=== PATIENT | male | born 1930 | race Caucasian/White ===

== ENCOUNTER 2016-09-10 11:28 | Emergency (ER) | payer MEDICARE, OTHER ==
[2016-09-10 11:37] VITALS: PULSE 60; RESP 18
--- NOTE | 2016-09-10 12:43 | ED ---
Fall HPI - General Chief Complaint: Fall Stated Complaint: Fell/head injury Time Seen by Provider: 09/10/16 12:20 Source: patient, family, RN notes reviewed Mode of arrival: wheelchair - History of Present Illness Initial Comments: This is a 85-year-old male who slipped and fell this morning landing on asphalt. He states he landed flat on his back in his head. Skin no loss of consciousness denies a loss of function is upper or lower extremities denies any neck pain. He is on blood thinner however. No other complaints at this time MD Complaint: fall - Related Data Home Medications Medication Instructions Recorded Confirmed Amitriptyline HCl 25 mg PO HS 03/16/15 09/10/16 Apixaban [Eliquis] 2.5 mg PO BID 03/16/15 09/10/16 Atorvastatin [Lipitor] 20 mg PO DAILY 03/16/15 09/10/16 Enalapril/Hydrochlorothiazide 1 tab PO DAILY 03/16/15 09/10/16 [Vaseretic 10-25 mg] HYDROcodone/APAP 7.5-325MG [[place] 1 tab PO Q6HR PRN 03/16/15 09/10/16 7.5-325] Isosorbide Mononitrate ER [Imdur] 30 mg PO DAILY 03/16/15 09/10/16 Nitroglycerin Sl Tabs [Nitrostat] 0.4 mg SUBLINGUAL Q5M PRN 03/16/15 09/10/16 Omeprazole [PriLOSEC] 20 mg PO AC-BID 03/16/15 09/10/16 amLODIPine BESYLATE [Norvasc] 10 mg PO DAILY 03/16/15 09/10/16 Ferrous Sulfate [Feosol] 325 mg PO HS 09/10/16 09/10/16 Januvia (Unknown Dose) 1 tab PO DAILY 09/10/16 09/10/16 Metoprolol Tartrate [Lopressor] 25 mg PO TID 09/10/16 09/10/16 Previous Rx's Medication Instructions Recorded Allopurinol [Zyloprim] 100 mg PO DAILY #30 tab 03/23/15 Allergies Allergy/AdvReac Type Severity Reaction Status Date / Time No Known Allergies Allergy Verified 09/10/16 11:37 Review of Systems ROS Statement: Those systems with pertinent positive or pertinent negative responses have been documented in the HPI. ROS Other: All systems not noted in ROS Statement are negative. Past Medical History Past Medical History: Coronary Artery Disease (CAD), Diabetes Mellitus, Hypertension History of Any Multi-Drug Resistant Organisms: None Reported Past Surgical History: Heart Catheterization With Stent, Pacemaker, Tonsillectomy Additional Past Surgical History / Comment(s): left knee replacement, plate in back, right carotid endarterectomy Past Anesthesia/Blood Transfusion Reactions: No Reported Reaction Date of Last Stent Placement:: unknown Past Psychological History: No Psychological Hx Reported Smoking Status: Former smoker Past Alcohol Use History: Occasional Past Drug Use History: None Reported - Past Family History Father Family Medical History: Coronary Artery Disease (CAD) Mother Family Medical History: Myocardial Infarction (DC) General Exam - General Exam Comments Initial Comments: This is a well-developed well-nourished awake alert oriented history male he has a [place] Coma Scale of 15 Limitations: no limitations General appearance: alert, in no apparent distress Head exam: Present: normocephalic, normal inspection, other (I'll discomfort to palpation over the next several scalp with no evidence of any lacerations or abrasions no step-off or crepitation.) Eye exam: Present: normal appearance, PERRL, EOMI. Absent: scleral icterus, conjunctival injection, periorbital swelling ENT exam: Present: normal exam, mucous membranes moist Neck exam: Present: normal inspection. Absent: tenderness, meningismus, lymphadenopathy Respiratory exam: Present: normal lung sounds bilaterally, chest wall tenderness (Tenderness palpation over left lateral chest wall and costochondral margins. No definite step-off or crepitation no abrasion seen no bruising) Cardiovascular Exam: Present: regular rate, normal rhythm, normal heart sounds. Absent: systolic murmur, diastolic murmur, rubs, gallop, clicks GI/Abdominal exam: Present: soft, normal bowel sounds. Absent: distended, tenderness, guarding, rebound, rigid Extremities exam: Present: normal inspection, full ROM, normal capillary refill. Absent: tenderness, pedal edema, joint swelling, calf tenderness Back exam: Present: normal inspection Neurological exam: Present: alert, oriented X3, CN II-XII intact Psychiatric exam: Present: normal affect, normal mood Skin exam: Present: warm, dry, intact, normal color. Absent: rash Course Vital Signs 09/10/16 11:33 Temperature 98.0 F Pulse Rate 60 Respiratory 18 Rate Blood Pressure 145/68 O2 Sat by Pulse 99 Oximetry Medical Decision Making - Medical Decision Making I did discuss the findings with the patient family patient be discharged he is a follow-up as needed with his doctor return when necessary - Radiology Data Radiology results: report reviewed (I did review the imaging and reports and CT the head neck show no acute findings or is degenerative changes noted. There is a fracture of the left fifth rib. No pneumothorax no other findings.), image reviewed Disposition Clinical Impression: Fall, Rib fracture, Scalp contusion Disposition: HOME SELF-CARE Condition: Good Instructions: Fall Prevention for Older Adults (ED), Rib Fracture (ED), Scalp Contusion in Adults (ED)
--- NOTE | 2016-09-10 13:24 | CT ---
EXAMINATION TYPE: CT brain cspine wo con DATE OF EXAM: 09/10/2016 1:11 PM COMPARISON: 03/16/2015 HISTORY: Fall/head injury CT DLP: Brain (1081.60) and C-spine (442.80) mGycm, Automated exposure control for dose reduction was used. CONTRAST: Patient injected with mL of . CT of the brain is performed utilizing 3 mm thick sections through the posterior fossa and 3 mm thick sections through the remaining calvarium. Study is performed within 24 hours of arrival to the hospital. No abnormal hyperdensity is present to suggest an acute intracranial hemorrhage. No mass lesion is evident. No acute infarcts are evident. There is mild periventricular white matter hypodensity, likely on the basis of mild chronic white matter ischemic changes. Present on the 2014 comparison. Ventricles and sulci are prominent for the patient age. Paranasal sinuses and mastoid air cells within the [id number] are clear. IMPRESSIONS: 1. Atrophy with chronic appearing white matter ischemic type changes CT cervical spine. COMPARISON: None CT of the cervical spine is performed in the axial plane at 2 mm thick sections. Reconstructed image s in the coronal, and sagittal plane are reviewed on the computer. No acute fractures are evident. There is straightening of the vertebral body alignment. A minimal grade 1 spondylolisthesis of C3 ant eriorly on C4 may be present. There is loss of disc height CT 5 6 C6-7. Longitudinal ligament calcification may be present posterio rly at the disc space of C5-6. Posterior endplate spurring is noted at C4. Anterior vertebral body sp urring is present C3, C5, C6 and C7. Vertebral body heights are preserved. Left foraminal narrowing at C2-3 is present due to uncovertebral joint hypertrophy. Severe right fora silvestre stenosis is present C3-4 due to uncovertebral joint hypertrophy and facet hypertrophy. Severe r ight and moderate to severe left foraminal stenosis is present secondary to uncovertebral joint hyper trophy and facet hypertrophy. Severe foraminal stenosis is present bilaterally C5-C6. Endplate spurri ng and longitudinal ligament calcification are contributing to AP spinal canal stenosis with an AP di ameter estimated 0.6 cm. Severe bilateral foraminal stenosis due to uncovertebral joint hypertrophy i s present C6-7 IMPRESSIONS: 1. No acute osseous abnormality. 2. Severe foraminal stenosis due to uncovertebral joint hypertrophy and some facet hypertrophy. 3. AP spinal canal stenosis due to endplate spurring ligament calcification at C5-6.
--- NOTE | 2016-09-10 13:26 | XR ---
EXAMINATION TYPE: XR ribs LT w pa chest xray DATE OF EXAM: 09/10/2016 1:18 PM COMPARISON: 03/23/2015 HISTORY: Pain TECHNIQUE: Single view of the chest 4 views of the ribs are submitted. FINDINGS: Chronic senescent parenchymal changes identified. No Evidence for pneumothorax. No evidenc e for focal contusion. Mediastinal structures are midline. Evaluation of the ribs demonstrate sever al remote appearing left-sided rib fractures however there may be an acute fracture involving left ri b #5 posteriorly laterally. IMPRESSION: 1. Chronic senescent parenchymal change. 2. Suspect acute left-sided rib fracture of rib 5. Multiple additional remote fractures.
[2016-09-10 14:26] VITALS: BP 150/70; TEMP 96.8
== END 2016-09-10 14:26 | disposition home or self-care (01) ==
LOC: EC 11:28
DX: S22.32XA Fracture of one rib, left side, initial encounter for closed fracture (principal); S00.03XA Contusion of scalp, initial encounter; W01.0XXA Fall on same level from slipping, tripping and stumbling without subsequent striking against object, initial encounter; Z79.899 Other long term (current) drug therapy; I10 Essential (primary) hypertension; E11.9 Type 2 diabetes mellitus without complications; I25.10 Atherosclerotic heart disease of native coronary artery without angina pectoris; Z95.0 Presence of cardiac pacemaker; Z95.5 Presence of coronary angioplasty implant and graft; Z87.891 Personal history of nicotine dependence
CPT/HCPCS: 70450; 72125; 99284

== ENCOUNTER → 2016-10-02 | Outpatient (CLI) | payer OTHER, MEDICARE ==
--- NOTE | 2016-10-02 15:15 | XR ---
EXAMINATION TYPE: XR chest 2V DATE OF EXAM: 10/02/2016 2:37 PM COMPARISON: 09/10/2016 HISTORY: 85-year-old male left-sided lower rib pain after fall one week ago, rib fracture TECHNIQUE: Frontal and lateral views FINDINGS: Heart is normal size. At this cardiac calcifications throughout the aorta with mild elongation. Mild interstitial prominence unchanged. There appears to be a slight cortical step-off involving the left posterolateral seventh rib not seen previously. The previously described left posterior fifth rib fra cture is largely obscured by the patient's pacemaker generator. No consolidation, pneumothorax, or pl eural effusion. IMPRESSION: Now apparent is a minimally displaced fracture of the left posterolateral seventh rib. The previously seen left posterior fifth rib fracture is likely obscured by the patient's pacemaker generator. No a cute cardiopulmonary process.
== END | disposition home or self-care (01) ==
LOC: RADXRMAIN 14:14
PROVIDERS: ATTEND Internal Medicine
DX: S22.32XA Fracture of one rib, left side, initial encounter for closed fracture (principal)
CPT/HCPCS: 71020

== ENCOUNTER 2017-07-06 21:06 | Inpatient (IN) | payer MEDICARE, OTHER ==
[2017-07-06 22:34] LABS: Basophils % (A) 0 %; CH 32.5; Eosinophils % (A) 0 %; HCT 39.3 % (39.0-53.0); HDW 2.49; HGB 12.8 gm/dL (13.0-17.5); Luc # (Auto) 0.16; Luc % (Auto) 1; Lymphocytes # (A) 0.4 k/uL (1.0-4.8); Lymphocytes % (A) 3 %; MCH 32.2 pg (25.0-35.0); MCHC 32.6 g/dL (31.0-37.0); Macrocytosis Slight; Mean Platelet Volume 8.6; Monocytes # (A) 0.5 k/uL (0-1.0); Monocytes % (A) 4 %; Neutrophils # (A) 10.6 k/uL (1.3-7.7); Neutrophils % (A) 91 %; RBC 3.96 m/uL (4.30-5.90); RDW 15.1 % (11.5-15.5); WBC 11.6 k/uL (3.8-10.6); WBC (Perox) 12.17
[2017-07-06 22:37] LABS: Calcium 8.6 mg/dL (8.4-10.2); Magnesium 1.4 mg/dL (1.6-2.3); Potassium 4.7 mmol/L (3.5-5.1); Total Bilirubin 0.8 mg/dL (0.2-1.3); Total Protein 5.7 g/dL (6.3-8.2)
[2017-07-06 22:40] LABS: INR 1.1 (<1.2); Partial Thromboplastin Time 26.4 sec (22.0-30.0); Prothrombin Time 11.5 sec (9.0-12.0)
[2017-07-06] MEDS ORDERED: NALOXONE 0.4 MG/ML 1 ML VIAL IV PRN (22:52)
[2017-07-06] MEDS ORDERED: ACETAMINOPHEN TAB 325 MG TAB PO PRN (22:52)
--- NOTE | 2017-07-06 22:57 | ED ---
Weakness HPI - General Chief complaint: Weakness Stated complaint: Weakness Time Seen by Provider: 07/06/17 22:06 Source: family Mode of arrival: wheelchair Limitations: no limitations - History of Present Illness Initial comments: This patient is an 86-year-old man brought to be evaluated for generalized weakness. History is from both the patient and his . She states that for the past few days he seems to be becoming increasingly fatigued and is having difficulty with walking. Twice in the past 24 hours she has had to call the fire department for assistance in lifting him out of his chair. The patient is experiencing bilateral leg weakness such that he has a very hard time standing up. He does at times his walker and he has not been able to use this. Tonight they got him up and he fell right back down to the seated position. The patient is denying any focal weakness. He is denying pain, dyspnea, change in urination or bowel movements. MD Complaint: generalized weakness, lack of energy, difficulty walking -: days(s) Location: generalized Severity: moderate Consistency: constant Improves with: none Worsens with: none Associated Symptoms: denies other symptoms - Related Data Home Medications Medication Instructions Recorded Confirmed Amitriptyline HCl 25 mg PO HS 03/16/15 07/06/17 Apixaban [Eliquis] 2.5 mg PO BID 03/16/15 07/06/17 Atorvastatin [Lipitor] 20 mg PO DAILY 03/16/15 07/06/17 Enalapril/Hydrochlorothiazide 1 tab PO DAILY 03/16/15 07/06/17 [Vaseretic 10-25 mg] HYDROcodone/APAP 7.5-325MG [[place] 1 tab PO Q6HR PRN 03/16/15 07/06/17 7.5-325] Isosorbide Mononitrate ER [Imdur] 30 mg PO DAILY 03/16/15 07/06/17 Nitroglycerin Sl Tabs [Nitrostat] 0.4 mg SUBLINGUAL Q5M PRN 03/16/15 07/06/17 Omeprazole [PriLOSEC] 20 mg PO AC-BID 03/16/15 07/06/17 amLODIPine BESYLATE [Norvasc] 10 mg PO DAILY 03/16/15 07/06/17 Ferrous Sulfate [Feosol] 325 mg PO DAILY 09/10/16 07/06/17 Metoprolol Tartrate [Lopressor] 25 mg PO TID 09/10/16 07/06/17 sitaGLIPtin PHOSPHATE [Januvia] 100 mg PO DAILY 07/06/17 07/06/17 Previous Rx's Medication Instructions Recorded Allopurinol [Zyloprim] 100 mg PO DAILY #30 tab 03/23/15 Allergies Allergy/AdvReac Type Severity Reaction Status Date / Time No Known Allergies Allergy Verified 07/06/17 22:21 Review of Systems ROS Statement: Those systems with pertinent positive or pertinent negative responses have been documented in the HPI. ROS Other: All systems not noted in ROS Statement are negative. Constitutional: Reports: weakness. Denies: fever, chills Respiratory: Denies: cough, dyspnea Cardiovascular: Denies: chest pain, palpitations, orthopnea, edema, syncope Gastrointestinal: Denies: abdominal pain, nausea, vomiting, diarrhea Genitourinary: Denies: dysuria, hematuria Musculoskeletal: Denies: back pain Skin: Denies: rash Neurological: Denies: headache, weakness, numbness Past Medical History Past Medical History: Coronary Artery Disease (CAD), Diabetes Mellitus, Hypertension History of Any Multi-Drug Resistant Organisms: None Reported Past Surgical History: Heart Catheterization With Stent, Pacemaker, Tonsillectomy Additional Past Surgical History / Comment(s): left knee replacement, plate in back, right carotid endarterectomy Past Anesthesia/Blood Transfusion Reactions: No Reported Reaction Date of Last Stent Placement:: unknown Past Psychological History: No Psychological Hx Reported Smoking Status: Former smoker Past Alcohol Use History: None Reported Past Drug Use History: None Reported - Past Family History Father Family Medical History: Coronary Artery Disease (CAD) Mother Family Medical History: Myocardial Infarction (AR) General Exam Limitations: no limitations General appearance: alert, in no apparent distress Head exam: Present: atraumatic, normocephalic Eye exam: Present: normal appearance. Absent: scleral icterus, conjunctival injection ENT exam: Present: mucous membranes dry Neck exam: Present: normal inspection, full ROM. Absent: meningismus Respiratory exam: Present: normal lung sounds bilaterally. Absent: respiratory distress, wheezes, rales, rhonchi, stridor Cardiovascular Exam: Present: regular rate, normal rhythm, systolic murmur. Absent: diastolic murmur, rubs, gallop GI/Abdominal exam: Present: soft, hernia (Easily reduced umbilical hernia.). Absent: distended, tenderness, guarding, rebound, mass, pulsatile mass Extremities exam: Present: normal inspection, normal capillary refill. Absent: pedal edema, calf tenderness Back exam: Present: normal inspection. Absent: CVA tenderness (R), CVA tenderness (L) Neurological exam: Present: alert, oriented X3, CN II-XII intact. Absent: motor sensory deficit Skin exam: Present: warm, dry, intact, normal color. Absent: rash Course Vital Signs 07/06/17 07/06/17 21:13 22:42 Temperature 98.9 F Pulse Rate 60 Pulse Rate [ 59 L Direct Mail Clerk ] Respiratory 20 Rate Blood Pressure 111/77 O2 Sat by Pulse 96 Oximetry EKG Findings - EKG Comments: EKG Findings:: Patient's 12-lead EKG shows what appears to be a paced rhythm at 60 bpm, with an otherwise normal paced appearance - EKG Results: EKG: interpreted by SAMANTHA Medical Decision Making - Lab Data Result diagrams: 07/06/17 22:14 07/06/17 22:14 Lab Results 07/06/17 07/06/17 07/06/17 Range/Units 22:14 22:14 22:14 WBC 11.6 H (3.8-10.6) k/uL RBC 3.96 L (4.30-5.90) m/uL Hgb 12.8 L (13.0-17.5) gm/dL Hct 39.3 (39.0-53.0) % MCV 99.0 (80.0-100.0) fL MCH 32.2 (25.0-35.0) pg MCHC 32.6 (31.0-37.0) g/dL RDW 15.1 (11.5-15.5) % Plt Count 144 L (150-450) k/uL Neutrophils % 91 % Lymphocytes % 3 % Monocytes % 4 % Eosinophils % 0 % Basophils % 0 % Neutrophils # 10.6 H (1.3-7.7) k/uL Lymphocytes # 0.4 L (1.0-4.8) k/uL Monocytes # 0.5 (0-1.0) k/uL Eosinophils # 0.0 (0-0.7) k/uL Basophils # 0.0 (0-0.2) k/uL Macrocytosis Slight PT (9.0-12.0) sec INR (<1.2) APTT (22.0-30.0) sec Sodium 133 L (137-145) mmol/L Potassium 4.7 (3.5-5.1) mmol/L Chloride 101 (98-107) mmol/L Carbon Dioxide 20 L (22-30) mmol/L Anion Gap 12 mmol/L BUN 89 H* (9-20) mg/dL Creatinine 3.70 H (0.66-1.25) mg/dL Est GFR (MDRD) Af Amer 19 (>60 ml/min/1.73 sqM) Est GFR (MDRD) Non-Af 16 (>60 ml/min/1.73 sqM) Glucose 154 H (74-99) mg/dL Plasma Lactic Acid Nishant (0.7-2.0) mmol/L Calcium 8.6 (8.4-10.2) mg/dL Magnesium 1.4 L (1.6-2.3) mg/dL Total Bilirubin 0.8 (0.2-1.3) mg/dL AST 57 (17-59) U/L ALT 36 (21-72) U/L Alkaline Phosphatase 148 H (38-126) U/L Total Creatine Kinase 591 H (55-170) U/L CK-MB (CK-2) 7.4 H* (0.0-2.4) ng/mL CK-MB (CK-2) Rel Index 1.3 Troponin I 0.150 H* (0.000-0.034) ng/mL Total Protein 5.7 L (6.3-8.2) g/dL Albumin 3.0 L (3.5-5.0) g/dL 07/06/17 07/06/17 Range/Units 22:14 22:20 WBC (3.8-10.6) k/uL RBC (4.30-5.90) m/uL Hgb (13.0-17.5) gm/dL Hct (39.0-53.0) % MCV (80.0-100.0) fL MCH (25.0-35.0) pg MCHC (31.0-37.0) g/dL RDW (11.5-15.5) % Plt Count (150-450) k/uL Neutrophils % % Lymphocytes % % Monocytes % % Eosinophils % % Basophils % % Neutrophils # (1.3-7.7) k/uL Lymphocytes # (1.0-4.8) k/uL Monocytes # (0-1.0) k/uL Eosinophils # (0-0.7) k/uL Basophils # (0-0.2) k/uL Macrocytosis PT 11.5 (9.0-12.0) sec INR 1.1 (<1.2) APTT 26.4 (22.0-30.0) sec Sodium (137-145) mmol/L Potassium (3.5-5.1) mmol/L Chloride (98-107) mmol/L Carbon Dioxide (22-30) mmol/L Anion Gap mmol/L BUN (9-20) mg/dL Creatinine (0.66-1.25) mg/dL Est GFR (MDRD) Af Amer (>60 ml/min/1.73 sqM) Est GFR (MDRD) Non-Af (>60 ml/min/1.73 sqM) Glucose (74-99) mg/dL Plasma Lactic Acid Nishant 1.7 (0.7-2.0) mmol/L Calcium (8.4-10.2) mg/dL Magnesium (1.6-2.3) mg/dL Total Bilirubin (0.2-1.3) mg/dL AST (17-59) U/L ALT (21-72) U/L Alkaline Phosphatase (38-126) U/L Total Creatine Kinase (55-170) U/L CK-MB (CK-2) (0.0-2.4) ng/mL CK-MB (CK-2) Rel Index Troponin I (0.000-0.034) ng/mL Total Protein (6.3-8.2) g/dL Albumin (3.5-5.0) g/dL Disposition Clinical Impression: Altered mental status, Generalized weakness, Acute renal failure Disposition: ADMITTED IP TO THIS [facility] Condition: Poor
[2017-07-06 23:04] LABS: Creatine Kinase MB 7.4 ng/mL (0.0-2.4); Troponin I 0.15 ng/mL (0.000-0.034)
--- NOTE | 2017-07-06 23:28 | XR ---
EXAM: XR Chest, 1 View CLINICAL HISTORY: Reason: weakness TECHNIQUE: Frontal view of the chest. COMPARISON: Chest x-ray October 02, 2016 FINDINGS: Lungs: No consolidation. Pleural space: No pleural effusion. No pneumothorax. Heart: Cardiac silhouette is within normal limits. Left chest wall cardiac pacer. Mediastinum: Unremarkable. IMPRESSION: No acute cardiopulmonary process.
--- NOTE | 2017-07-06 23:57 | P.HPIM ---
History of Present Illness H&P Date: 07/06/17 Chief Complaint: General weakness 86-year-old man brought to be evaluated for generalized weakness. History was taken from both the patient and his . Over the past few days patient seemed to be becoming increasingly fatigued and was having difficulty with walking. Yesterday EMS was called, he was advised to go to the emergency department but he refused. This morning he was able to get up and use his walker but later thought today he was so weak and could not ambulate anymore. The weakness involves the whole body and is not focal. He denied having any blurry or double vision, slurred speech. He said he has been having diarrhea since last Friday. No nausea or vomiting. No fevers or chills. Patient was out in the [place] over the past several weeks, his stated that he was out 6 hours a day over the past several days and she thinks that he is exhausted and that is why he is weak. He admitted to having some dizziness oscar. when getting up but no palpitations, no chest pain or shortness of breath. No dysuria but he said that he is not able to hold his bladder until he gets to the toilet. Review of Systems 12 point review of system was performed, negative except for HPI Past Medical History Past Medical History: Coronary Artery Disease (CAD), Diabetes Mellitus, Hypertension History of Any Multi-Drug Resistant Organisms: None Reported Past Surgical History: Heart Catheterization With Stent, Pacemaker, Tonsillectomy Additional Past Surgical History / Comment(s): left knee replacement, plate in back, right carotid endarterectomy Past Anesthesia/Blood Transfusion Reactions: No Reported Reaction Date of Last Stent Placement:: unknown Past Psychological History: No Psychological Hx Reported Smoking Status: Former smoker Past Alcohol Use History: None Reported Past Drug Use History: None Reported - Past Family History Father Family Medical History: Coronary Artery Disease (CAD) Mother Family Medical History: Myocardial Infarction ([place]) Medications and Allergies Home Medications Medication Instructions Recorded Confirmed Type Amitriptyline HCl 25 mg PO HS 03/16/15 07/06/17 History Apixaban [Eliquis] 2.5 mg PO BID 03/16/15 07/06/17 History Atorvastatin [Lipitor] 20 mg PO DAILY 03/16/15 07/06/17 History Enalapril/Hydrochlorothiazide 1 tab PO DAILY 03/16/15 07/06/17 History [Vaseretic 10-25 mg] HYDROcodone/APAP 7.5-325MG [[place] 1 tab PO Q6HR PRN 03/16/15 07/06/17 History 7.5-325] Isosorbide Mononitrate ER [Imdur] 30 mg PO DAILY 03/16/15 07/06/17 History Nitroglycerin Sl Tabs [Nitrostat] 0.4 mg SUBLINGUAL Q5M PRN 03/16/15 07/06/17 History Omeprazole [PriLOSEC] 20 mg PO AC-BID 03/16/15 07/06/17 History amLODIPine BESYLATE [Norvasc] 10 mg PO DAILY 03/16/15 07/06/17 History Allopurinol [Zyloprim] 100 mg PO DAILY #30 tab 03/23/15 07/06/17 Rx Ferrous Sulfate [Feosol] 325 mg PO DAILY 09/10/16 07/06/17 History Metoprolol Tartrate [Lopressor] 25 mg PO TID 09/10/16 07/06/17 History sitaGLIPtin PHOSPHATE [Januvia] 100 mg PO DAILY 07/06/17 07/06/17 History Allergies Allergy/AdvReac Type Severity Reaction Status Date / Time No Known Allergies Allergy Verified 07/06/17 22:21 Physical Exam Vitals: Vital Signs Temp Pulse Pulse Resp BP Pulse Ox 07/06/17 23:14 97.8 F 60 18 109/62 97 07/06/17 22:42 59 L 07/06/17 21:13 98.9 F 60 20 111/77 96 Intake and Output 07/06/17 07/06/17 07/07/17 14:59 22:59 06:59 Other: Weight 83.461 kg Patient Weight 07/07/17 06:59 Weight 83.461 kg Constitutional: No acute distress, conversant, pleasant Eyes:Anicteric sclerae, moist conjunctiva, no lid-lag, PERRLA, ENMT: Dry mucous membranes, Oropharynx clear, no erythema, exudates Neck: Supple, FROM, no masses, or JVD, No carotid bruits, No thyromegaly Lungs: Clear to auscultation, Clear to percussion, Normal respiratory effort, no accessory muscle use Cardiovascular: Heart regular in rate and rhythm, No murmurs, gallops, or rubs, No peripheral edema Abdominal: Soft, Nontender, no guarding, rebound or rigidity, Normoactive bowel sounds, No hepatomegaly, No splenomegaly, No palpable mass Skin: Normal temperature, tone, texture, turgor, no induration, No subcutaneous nodules, No rash, lesions, No ulcers Extremities: No digital cyanosis, No clubbing, Pedal pulses intact and symmetrical, Radial pulses intact and symmetrical, No calf tenderness Psychiatric: Alert and oriented to person, place and time, appropriate affect, intact judgement Neuro: Muscles Strength 5/5 in all 4 extremities, Sensation to light touch grossly present throughout, Cranial nerves II-XII grossly intact, no focal sensory deficits Results CBC & Chem 7: 07/06/17 22:14 07/06/17 22:14 Labs: Abnormal Lab Results - Last 24 Hours (Table) 07/06/17 07/06/17 07/06/17 Range/Units 22:14 22:14 22:14 WBC 11.6 H (3.8-10.6) k/uL RBC 3.96 L (4.30-5.90) m/uL Hgb 12.8 L (13.0-17.5) gm/dL Plt Count 144 L (150-450) k/uL Neutrophils # 10.6 H (1.3-7.7) k/uL Lymphocytes # 0.4 L (1.0-4.8) k/uL Sodium 133 L (137-145) mmol/L Carbon Dioxide 20 L (22-30) mmol/L BUN 89 H* (9-20) mg/dL Creatinine 3.70 H (0.66-1.25) mg/dL Glucose 154 H (74-99) mg/dL Magnesium 1.4 L (1.6-2.3) mg/dL Alkaline Phosphatase 148 H (38-126) U/L Total Creatine Kinase 591 H (55-170) U/L CK-MB (CK-2) 7.4 H* (0.0-2.4) ng/mL Troponin I 0.150 H* (0.000-0.034) ng/mL Total Protein 5.7 L (6.3-8.2) g/dL Albumin 3.0 L (3.5-5.0) g/dL Assessment and Plan Plan: #1 Acute renal failure, chronic renal insufficiency stage 3B: Admit to med/surg Likely prerenal sec to dehydration IV NS at 125 cc/hr Avoid nephrotoxic meds Follow up cr daily. 2# DM type 2 Hold oral hypoglycemics Start SSI with sugar checks every AC and HS #3 HTN, CAD, Gout, Hyperlipidemia, paroxysmal a-fib: All stable Continue home meds #4 DVT prophylaxis: SCDs
[2017-07-07 00:30] VITALS: BMI 31.6
[2017-07-07] MEDS: HYDROcodone/APAP 7.5-325MG 1 EACH TAB PO PRN ×3 (02:28→17:46)
[2017-07-07] MEDS: SODIUM CHLORIDE 0.9% 1,000 ML IV SCH ×3 (02:29→16:07)
[2017-07-07 02:49] LABS: Appearance,Urine Cloudy (Clear); Bilirubin,Urine Negative (Negative); Glucose,Urine (UA) Negative (Negative); Ketones,Urine Negative (Negative); Leukocyte Esterase,Urine Moderate (Negative); Mucus,Urine Rare /hpf; Nitrite,Urine Negative (Negative); Particle Count 5830; Protein,Urine Trace (Negative); RBC,Urine 3 /hpf (0-5); Specific Gravity,Urine 1.014 (1.001-1.035); Squamous Epithelial Cell,Urine 1 /hpf (0-4); UA Billing (MACRO vs. MICRO) MICRO; Urobilinogen,Urine <2.0 mg/dL (<2.0); WBC,Urine 20 /hpf (0-5)
[2017-07-07 07:40] LABS: Glucose,Whole Blood 128 mg/dL (75-99)
[2017-07-07 07:42] LABS: Basophils % (A) 0 %; CH 33.5; CHCM 33.7; Eosinophils % (A) 0 %; HDW 2.56; HGB 11.1 gm/dL (13.0-17.5); Luc # (Auto) 0.19; Luc % (Auto) 2; Lymphocytes # (A) 0.4 k/uL (1.0-4.8); Lymphocytes % (A) 4 %; MCH 32.7 pg (25.0-35.0); MCHC 32.7 g/dL (31.0-37.0); MCV 99.8 fL (80.0-100.0); Monocytes # (A) 0.5 k/uL (0-1.0); Monocytes % (A) 5 %; Neutrophils # (A) 9.8 k/uL (1.3-7.7); Neutrophils % (A) 90 %; RBC 3.41 m/uL (4.30-5.90); RDW 13.8 % (11.5-15.5); WBC 10.8 k/uL (3.8-10.6)
[2017-07-07] MEDS: ATORVASTATIN 20 MG TAB PO SCH (07:42)
[2017-07-07] MEDS: APIXABAN 2.5 MG TABLET PO SCH ×2 (07:42→21:24)
[2017-07-07] MEDS: PANTOPRAZOLE 40 MG TABLET PO SCH ×2 (07:42→17:45)
[2017-07-07] MEDS: FERROUS SULFATE 325 MG TAB PO SCH (07:43)
[2017-07-07 07:45] LABS: Calcium 8.2 mg/dL (8.4-10.2); Potassium 4.3 mmol/L (3.5-5.1); Total Bilirubin 0.7 mg/dL (0.2-1.3); Total Protein 5.1 g/dL (6.3-8.2)
[2017-07-07] MEDS: INSULIN ASPART 100 UNIT/ML 1 ML 10 ML VIAL SQ SCH ×4 (07:47→21:24)
[2017-07-07] MEDS ORDERED: LINAGLIPTIN 5 MG TABLET PO SCH (09:00)
[2017-07-07] MEDS ORDERED: ALLOPURINOL 100 MG TAB PO SCH (09:00)
[2017-07-07] MEDS ORDERED: amLODIPine 10 MG TAB PO SCH (09:00)
[2017-07-07] MEDS ORDERED: ASPIRIN 325 MG TAB PO STA (09:44)
[2017-07-07] MEDS ORDERED: MORPHINE SULFATE 5 MG/ML SYRINGE IV SCH (09:45)
[2017-07-07] MEDS: METOPROLOL TARTRATE 25 MG TAB PO SCH ×3 (10:16→21:27)
[2017-07-07] MEDS: ISOSORBIDE MONONITRATE ER 30 MG TAB.ER.24H PO SCH (10:16)
--- NOTE | 2017-07-07 10:31 | CT ---
EXAMINATION TYPE: CT abdomen pelvis wo con DATE OF EXAM: 07/07/2017 COMPARISON: NONE HISTORY: Right sided flank pain CT DLP: 618.5 mGycm Examination of the solid and hollow viscera is limited given the lack of contrast. FINDINGS: LUNG BASES: Noted are basilar infiltrates with small pleural effusions. There is a small sliding-type hiatal hernia. There is cardiomegaly with coronary artery calcifications. LIVER/GB: The gallbladder is unremarkable. No space-occupying hepatic lesion. PANCREAS: No pancreatic mass identified. No inflammatory process seen. SPLEEN: No evidence for splenomegaly. No intrasplenic lesions seen. ADRENALS: No adrenal nodules identified. No evidence for thickening. KIDNEYS: Renal vascular calcifications are identified. No evidence for renal mass. No nephrolithiasis . No hydronephrosis. BOWEL: Appendix has a normal appearance. No evidence of bowel obstruction. No inflammatory process. S igmoid diverticulosis without diverticulitis. There is distention of small bowel measuring up to 2.6 cm with scattered air-fluid levels seen. No definite transition zone. Air is seen throughout nondilat ed colon. Findings may reflect mild ileus. Lymph nodes: No evidence for adenopathy greater than 1 cm. Abdominal aorta: Atheromatous changes seen. No evidence for aneurysm. Genital organs: There is prostate gland enlargement. Other: Small amount of free fluid is seen within the pelvis. IMPRESSION: 1. NO EVIDENCE FOR HYDRONEPHROSIS OR NEPHROLITHIASIS. RENAL VASCULAR CALCIFICATIONS ARE IDENTIFIED. 2. SMALL AMOUNT OF FREE FLUID WITHIN THE PELVIS. 3. BASILAR ATELECTASIS AND/OR INFILTRATES WITH PLEURAL EFFUSIONS. 4. SMALL SLIDING-TYPE HIATAL HERNIA. 5. ENLARGEMENT OF THE PROSTATE GLAND.
[2017-07-07 11:20] LABS: Glucose,Whole Blood 143 mg/dL (75-99)
--- NOTE | 2017-07-07 12:55 | P.PN ---
Subjective Progress Note Date: 07/07/17 Principal diagnosis: Patient is seen and examined today in follow up for MIN,and back pain 86 year old male with PMHx of DM, CAD, HTN, CVA Patient presented due to generalized weakness and fatigue, he reported doing long hours of physical work in the [employer] for the past few weeks. ALso reported postural dizziness. He was admitted for IVF hydration due to MIN from dehydration. today patient reports back pain over bilateral flanks sharp in nature, 8/10 in severity , and radiating to lower abd and groins bilaterally worsen with movement . He reports passing well formed stool overnight, denies any nausea , vomiting, fever,chills, chest pain or SOB. Denies any history of kidney stones. This morning his troponins continues to trend up, he still denies any chest pain or trouble breathing, but reports that taking a deep breath would exacerbate his pain. Objective - Vital Signs Vital signs: Vital Signs Temp 100.3 F H 07/07/17 07:00 Pulse 60 07/07/17 07:00 Resp 16 07/07/17 07:00 BP 98/59 07/07/17 07:00 Pulse Ox 95 07/07/17 07:00 Intake & Output 07/06/17 07/07/17 07/07/17 18:59 06:59 18:59 Intake Total 750 Balance 750 Weight 83.461 kg 83.461 kg Intake: Intake, IV Titration 750 Amount Sodium Chloride 0.9% 1, 750 000 ml @ 125 mls/hr IV . Q8H [facility] Rx#:[id number] Other: Voiding Method Urinal # Voids 1 1 - Exam Constitutional: vital signs stable, Not in acute distress, pleasant, conversant Lungs: good breath sounds bilaterally , limited effort due to pain , no wheezes Cardiovascular: Regular rate and rhythm, no murmurs, no gallops, no rubs, no peripheral edema Gastrointestinal: Soft, Tenderness to percussion over the bilateral costovertebral angle , mild abd distention, bowel sounds positive, no abdominal wall hernias Extremities: No digital cyanosis or clubbing, peripheral pulses palpable and equal over bilateral radial arteries and dorsalis pedis artery, no calf muscle tenderness Psych: Alert, oriented to place, person and time - Labs CBC & Chem 7: 07/07/17 07:17 07/07/17 07:17 Labs: Abnormal Lab Results - Last 24 Hours (Table) 07/06/17 07/06/17 07/06/17 Range/Units 22:14 22:14 22:14 WBC 11.6 H (3.8-10.6) k/uL RBC 3.96 L (4.30-5.90) m/uL Hgb 12.8 L (13.0-17.5) gm/dL Hct (39.0-53.0) % Plt Count 144 L (150-450) k/uL Neutrophils # 10.6 H (1.3-7.7) k/uL Lymphocytes # 0.4 L (1.0-4.8) k/uL Sodium 133 L (137-145) mmol/L Carbon Dioxide 20 L (22-30) mmol/L BUN 89 H* (9-20) mg/dL Creatinine 3.70 H (0.66-1.25) mg/dL Glucose 154 H (74-99) mg/dL POC Glucose (mg/dL) (75-99) mg/dL Calcium (8.4-10.2) mg/dL Magnesium 1.4 L (1.6-2.3) mg/dL Alkaline Phosphatase 148 H (38-126) U/L Total Creatine Kinase 591 H (55-170) U/L CK-MB (CK-2) 7.4 H* (0.0-2.4) ng/mL Troponin I 0.150 H* (0.000-0.034) ng/mL Total Protein 5.7 L (6.3-8.2) g/dL Albumin 3.0 L (3.5-5.0) g/dL Urine Protein (Negative) Ur Leukocyte Esterase (Negative) Urine WBC (0-5) /hpf Hyaline Casts (0-2) /lpf Urine Mucus (None) /hpf 07/07/17 07/07/17 07/07/17 Range/Units 02:35 07:01 07:17 WBC 10.8 H (3.8-10.6) k/uL RBC 3.41 L (4.30-5.90) m/uL Hgb 11.1 L (13.0-17.5) gm/dL Hct 34.0 L (39.0-53.0) % Plt Count 138 L (150-450) k/uL Neutrophils # 9.8 H (1.3-7.7) k/uL Lymphocytes # 0.4 L (1.0-4.8) k/uL Sodium (137-145) mmol/L Carbon Dioxide (22-30) mmol/L BUN (9-20) mg/dL Creatinine (0.66-1.25) mg/dL Glucose (74-99) mg/dL POC Glucose (mg/dL) 128 H (75-99) mg/dL Calcium (8.4-10.2) mg/dL Magnesium (1.6-2.3) mg/dL Alkaline Phosphatase (38-126) U/L Total Creatine Kinase (55-170) U/L CK-MB (CK-2) (0.0-2.4) ng/mL Troponin I (0.000-0.034) ng/mL Total Protein (6.3-8.2) g/dL Albumin (3.5-5.0) g/dL Urine Protein Trace H (Negative) Ur Leukocyte Esterase Moderate H (Negative) Urine WBC 20 H (0-5) /hpf Hyaline Casts 163 H (0-2) /lpf Urine Mucus Rare H (None) /hpf 07/07/17 07/07/17 Range/Units 07:17 07:17 WBC (3.8-10.6) k/uL RBC (4.30-5.90) m/uL Hgb (13.0-17.5) gm/dL Hct (39.0-53.0) % Plt Count (150-450) k/uL Neutrophils # (1.3-7.7) k/uL Lymphocytes # (1.0-4.8) k/uL Sodium 131 L (137-145) mmol/L Carbon Dioxide 17 L (22-30) mmol/L BUN 91 H* (9-20) mg/dL Creatinine 3.60 H (0.66-1.25) mg/dL Glucose 113 H (74-99) mg/dL POC Glucose (mg/dL) (75-99) mg/dL Calcium 8.2 L (8.4-10.2) mg/dL Magnesium (1.6-2.3) mg/dL Alkaline Phosphatase (38-126) U/L Total Creatine Kinase (55-170) U/L CK-MB (CK-2) (0.0-2.4) ng/mL Troponin I 0.451 H* (0.000-0.034) ng/mL Total Protein 5.1 L (6.3-8.2) g/dL Albumin 2.4 L (3.5-5.0) g/dL Urine Protein (Negative) Ur Leukocyte Esterase (Negative) Urine WBC (0-5) /hpf Hyaline Casts (0-2) /lpf Urine Mucus (None) /hpf Assessment and Plan Assessment: 86 year old male presented with generalized fatigue and postural dizziness. admitted for MIN due to dehydration (1) Acute renal failure Narrative/Plan: acute MIN 2/2 prerenal ATN from dehydration associated with postural dizziness avoid nephrotoxic meds IVF hydration monitor urine output and renal function retroperitoneal US , r/o hydronephrosis Hold allopurinol Current Visit: Yes Status: Acute Code(s): N17.9 - ACUTE KIDNEY FAILURE, UNSPECIFIED SNOMED Code(s): 64993094 (2) Back pain Narrative/Plan: no focal neurologic deficits CT wo cont, showed no acute abn, no evidence of nephrolithiasis pain control symptomatic Current Visit: Yes Status: Acute Code(s): M54.9 - DORSALGIA, UNSPECIFIED SNOMED Code(s): 563649019 (3) Generalized weakness Narrative/Plan: improving Current Visit: Yes Status: Acute Code(s): R53.1 - WEAKNESS SNOMED Code(s) : 76007799 (4) Diabetes Narrative/Plan: insulin sliding scale Current Visit: No Status: Acute Code(s): E11.9 - TYPE 2 DIABETES MELLITUS WITHOUT COMPLICATIONS SNOMED Code(s): 52748950 (5) HTN (hypertension) Narrative/Plan: borderline low normal continue home meds Current Visit: No Status: Chronic Code(s): I10 - ESSENTIAL (PRIMARY) HYPERTENSION SNOMED Code(s): 92594099 (6) Hyperlipemia Narrative/Plan: continue statin Current Visit: No Status: Chronic Code(s): E78.5 - HYPERLIPIDEMIA, UNSPECIFIED SNOMED Code(s): 38181126 (7) Paroxysmal a-fib Narrative/Plan: rate controlled on Eliquis and BB Current Visit: No Status: Acute Code(s): I48.0 - PAROXYSMAL ATRIAL FIBRILLATION SNOMED Code(s): 752351304 (8) DVT prophylaxis Narrative/Plan: on eliquis for P. afib Current Visit: Yes Status: Acute Code(s): JLB9913 - SNOMED Code(s): 655074118 Plan: Hypomagnesemia replace IV follow up Cardiology recs regarding elevated troponins, which could be related to renal abnormalities full dose ASA given Morphine PRN continue with BB continue with ASA, statin
--- NOTE | 2017-07-07 13:40 | US ---
EXAMINATION TYPE: US kidneys/renal and bladder DATE OF EXAM: 07/07/2017 COMPARISON: NONE CLINICAL HISTORY: 86-year-old male azotemia, evaluate for hydronephrosis. Patient states pain that ra diates to back when trying to sit up. TECHNIQUE: Multiple sonographic images of the kidneys and bladder are obtained. FINDINGS: Right Kidney: 9.7 x 4.0 x 4.8 cm with cortical thinning. No hydronephrosis. Some perinephric fluid is seen anteriorly. 6 mm focus of the mid pole could represent some cortical scarring are nonobstruct melissa calculus. Left Kidney: 10.3 x 4.2 x 5.8 cm without hydronephrosis. There is diffuse cortical thinning. No gross abnormality of the partially urine distended bladder. There is enlarged heterogeneous appear ance to the prostate gland measuring 6.4 x 6.0 x 6.3 cm. Neither ureteral jet is seen in the course o f the exam. IMPRESSION: 1. No hydronephrosis. 2. Changes of chronic medical renal disease. 3. Some mild perinephric fluid on the right is nonspecific but could represent senescent change or ch ronic kidney disease. 4. Enlarged prostate gland measuring 6.4 cm wide. Correlate for symptoms of underlying BPH.
[2017-07-07] MEDS ORDERED: MAGNESIUM SULFATE-D5W PMX 1 GM in DEXTROSE/WATER 1 100ML.BAG IVPB ONE (14:00)
--- NOTE | 2017-07-07 14:13 | P.CRDCN ---
History of Present Illness Consult date: 07/07/17 History of present illness: This is an 86-year old Caucaisn male past medical history significant for CAD, sick sinus syndrome with pacemaker implantation, paroxysmal atrial fibrillation on forder operator anticoagulation with Eliquis, hypertension, hyperlipidemia, carotid artery disease. CVA and diabetes mellitus. His most recent cath was performed 02/2012 which showed totally occluded RCA with collaterals from circumflex system, 50% stenosis of circumflex, 50% ramus and 90% mid LAD lesion which was stented at that time. He follows regularly with Dr. SARANYA Dunlap as an outpatient. We have been asked to see him in consultation for elevated troponin levels. He was brought in to the hospital per his for increasing weakness and mid back pain that radiates around to the front. He states he has been getting dizzy and losing his balance frequently over the last week. He denies chest pain, but states his upper abdomen is tender. He was also found to have an acute kidney injury on admission. His creatinine levels run around 1.4-1.7 since 2015. Today is 3.6. He denies specific chest pain or pressure, shortness of breath, palpitations, diaphoresis, nausea or vomiting. EKG reveals paced rhythm with no signs of ST abnormalities. Chest xray negative for an acute cardiopulmonary process. Troponin levels 0.15 and 0.451. Magnesium 1.3, potassium 4.3, BUN 91, Cr 3.6, Hgb 11.1, platelets 138 and WBC 10.8. Blood pressure 98/59 with heart rate 60 and temperature 100.3 degrees Fahrenheit. Current cardiac medications include enalapril 10 mg daily, amlodipine 10 mg daily, lopressor 25 mg TID, imdur 30 mg daily, atorvastatin 20 mg daily, eliquis 2.5 mg PO BID. Review of Systems CONSTITUTIONAL: Denies fever. Denies chills. EYES: Denies blurred vision. Denies vision changes. Denies eye pain. EARS, NOSE, MOUTH & THROAT: Denies headache. Denies sore throat. Denies ear pain. CARDIOVASCULAR: Denies chest pain. Denies shortness of breath. Denies orthopnea. Denies PND. Denies palpitations. RESPIRATORY: Denies cough. GASTROINTESTINAL: Denies abdominal pain. Denies diarrhea. Denies constipation. Denies nausea. Denies vomiting. MUSCULOSKELETAL: Denies myalgias. INTEGUMENTARY: Denies pruitis. Denies rash. NEUROLOGIC: Denies numbness. Denies tingling. Denies weakness. Complains of dizziness. PSYCHIATRIC: Denies anxiety. Denies depression. ENDOCRINE: Denies fatigue. Denies weight change. Denies polydipsia. Denies polyurina. GENITOURINARY: Denies burning, hematuria or urgency with micturation. HEMATOLOGIC: Denies history of anemia. Denies bleeding. Past Medical History Past Medical History: Coronary Artery Disease (CAD), Diabetes Mellitus, Hypertension History of Any Multi-Drug Resistant Organisms: None Reported Past Surgical History: Heart Catheterization With Stent, Pacemaker, Tonsillectomy Additional Past Surgical History / Comment(s): left knee replacement, plate in back, right carotid endarterectomy Past Anesthesia/Blood Transfusion Reactions: No Reported Reaction Date of Last Stent Placement:: unknown Type of Cardiac Device: Unknown Device Placement Date:: unknown Smoking Status: Former smoker - Past Family History Father Family Medical History: Coronary Artery Disease (CAD) Mother Family Medical History: Myocardial Infarction (MA) Medications and Allergies Home Medications Medication Instructions Recorded Confirmed Type Amitriptyline HCl 25 mg PO HS 03/16/15 07/06/17 History Apixaban [Eliquis] 2.5 mg PO BID 03/16/15 07/06/17 History Atorvastatin [Lipitor] 20 mg PO DAILY 03/16/15 07/06/17 History HYDROcodone/APAP 7.5-325MG [[place] 1 tab PO Q6HR PRN 03/16/15 07/06/17 History 7.5-325] Isosorbide Mononitrate ER [Imdur] 30 mg PO DAILY 03/16/15 07/06/17 History Nitroglycerin Sl Tabs [Nitrostat] 0.4 mg SUBLINGUAL Q5M PRN 03/16/15 07/06/17 History Omeprazole [PriLOSEC] 20 mg PO AC-BID 03/16/15 07/06/17 History amLODIPine BESYLATE [Norvasc] 10 mg PO DAILY 03/16/15 07/06/17 History Allopurinol [Zyloprim] 100 mg PO DAILY #30 tab 03/23/15 07/06/17 Rx Ferrous Sulfate [Feosol] 325 mg PO DAILY 09/10/16 07/06/17 History Metoprolol Tartrate [Lopressor] 25 mg PO TID 09/10/16 07/06/17 History sitaGLIPtin PHOSPHATE [Januvia] 100 mg PO DAILY 07/06/17 07/06/17 History Enalapril Maleate [Vasotec] 10 mg PO DAILY 07/07/17 07/07/17 History Allergies Allergy/AdvReac Type Severity Reaction Status Date / Time No Known Allergies Allergy Verified 07/06/17 22:21 Physical Exam Vitals: Vital Signs Temp Pulse Pulse Pulse Resp BP BP 07/07/17 07:00 100.3 F H 60 16 98/59 07/07/17 00:14 98.4 F 62 16 93/51 07/06/17 23:14 97.8 F 60 18 109/62 07/06/17 22:42 59 L 07/06/17 21:13 98.9 F 60 20 111/77 Pulse Ox 07/07/17 07:00 95 07/07/17 00:14 98 07/06/17 23:14 97 07/06/17 22:42 07/06/17 21:13 96 Intake and Output 07/06/17 07/07/17 07/07/17 22:59 06:59 14:59 Intake Total 750 Balance 750 Intake: Intake, IV Titration 750 Amount Sodium Chloride 0.9% 1, 750 000 ml @ 125 mls/hr IV . Q8H [facility] Rx#:[id number] Other: Voiding Method Urinal # Voids 1 1 Weight 83.461 kg 83.461 kg 83.461 kg Patient Weight 07/08/17 06:59 Weight 83.461 kg GENERAL: This is a 86-year-old male in no apparent distress at the time of my examination. Extremely hard of hearing. Obese. HEENT: Head is atraumatic, normocephalic. Pupils are equal, round. Sclerae anicteric. Conjunctivae are clear. Mucous membranes of the mouth are moist. Neck is supple. There is no jugular venous distention. No carotid bruit is heard. LUNGS: Clear to auscultation no wheezes, rales or rhonchi. No chest wall tenderness is noted on palpation or with deep breathing. HEART: Regular rate and rhythm with systolic ejection murmur, no rubs or gallops. S1 and S2 heard. ABDOMEN: Soft, nontender. Bowel sounds are heard. No organomegaly noted. EXTREMITIES: 1+ peripheral pulses with no evidence of peripheral edema and no calf tenderness noted. NEUROLOGIC: Patient is awake, alert and oriented x3. Results 07/07/17 07:17 07/07/17 07:17 Cardiac Enzymes 07/06/17 07/06/17 07/07/17 Range/Units 22:14 22:14 07:17 AST 57 55 (17-59) U/L CK-MB (CK-2) 7.4 H* (0.0-2.4) ng/mL Troponin I 0.150 H* (0.000-0.034) ng/mL 07/07/17 Range/Units 07:17 AST (17-59) U/L CK-MB (CK-2) (0.0-2.4) ng/mL Troponin I 0.451 H* (0.000-0.034) ng/mL Coagulation 07/06/17 Range/Units 22:14 PT 11.5 (9.0-12.0) sec APTT 26.4 (22.0-30.0) sec CBC 07/06/17 07/07/17 Range/Units 22:14 07:17 WBC 11.6 H 10.8 H (3.8-10.6) k/uL RBC 3.96 L 3.41 L (4.30-5.90) m/uL Hgb 12.8 L 11.1 L (13.0-17.5) gm/dL Hct 39.3 34.0 L (39.0-53.0) % Plt Count 144 L 138 L (150-450) k/uL Comprehensive Metabolic Panel 07/06/17 07/07/17 Range/Units 22:14 07:17 Sodium 133 L 131 L (137-145) mmol/L Potassium 4.7 4.3 (3.5-5.1) mmol/L Chloride 101 103 (98-107) mmol/L Carbon Dioxide 20 L 17 L (22-30) mmol/L BUN 89 H* 91 H* (9-20) mg/dL Creatinine 3.70 H 3.60 H (0.66-1.25) mg/dL Glucose 154 H 113 H (74-99) mg/dL Calcium 8.6 8.2 L (8.4-10.2) mg/dL AST 57 55 (17-59) U/L ALT 36 35 (21-72) U/L Alkaline Phosphatase 148 H 120 (38-126) U/L Total Protein 5.7 L 5.1 L (6.3-8.2) g/dL Albumin 3.0 L 2.4 L (3.5-5.0) g/dL Current Medications Generic Name Dose Route Start Last Admin Trade Name Freq PRN Reason Stop Dose Admin Acetaminophen 650 mg 07/06/17 22:52 Tylenol Tab PO Q6HR PRN Mild Pain or Fever > 100.5 Hydrocodone Bitart/Acetaminophen 1 each 07/06/17 22:54 07/07/17 11:04 [place]ach[place] 7.5-325 PO 1 each Q6HR PRN Administration Pain Control Allopurinol 100 mg 07/07/17 09:00 07/07/17 07:45 Zyloprim PO 100 mg DAILY [facility] Administration Amitriptyline HCl 25 mg 07/07/17 21:00 Elavil PO HS [facility] Amlodipine Besylate 10 mg 07/07/17 09:00 07/07/17 10:16 Norvasc PO Not Given DAILY [facility] Apixaban 2.5 mg 07/07/17 09:00 07/07/17 07:42 Eliquis PO 2.5 mg BID AN[facility]IO Administration Aspirin 81 mg 07/08/17 09:00 Aspirin PO DAILY [facility] Atorvastatin Calcium 20 mg 07/07/17 09:00 07/07/17 07:42 Lipitor PO 20 mg DAILY [facility] Administration Ferrous Sulfate 325 mg 07/07/17 09:00 07/07/17 07:43 Feosol PO 325 mg DAILY [facility] Administration Sodium Chloride 1,000 mls @ 125 mls/hr 07/06/17 23:00 07/07/17 07:38 Saline 0.9% IV 125 mls/hr .Q8H [facility] Administration Insulin Aspart 0 unit 07/07/17 07:30 07/07/17 07:47 Novolog SQ Not Given ACHS [facility] Protocol Isosorbide Mononitrate 30 mg 07/07/17 09:00 07/07/17 10:16 Imdur PO Not Given DAILY [facility] Metoprolol Tartrate 25 mg 07/07/17 09:00 07/07/17 10:16 Lopressor PO Not Given TID ANTONIO Morphine Sulfate 3 mg 07/07/17 09:46 Morphine Sulfate (Inj) IVP Q4HR PRN Pain Naloxone HCl 0.2 mg 07/06/17 22:52 Narcan IV Q2M PRN Opioid Reversal Pantoprazole Sodium 40 mg 07/07/17 07:30 07/07/17 07:42 Protonix PO 40 mg AC-BID AN[facility] Administration Intake and Output 07/06/17 07/07/17 07/07/17 22:59 06:59 14:59 Intake Total 750 Balance 750 Intake: Intake, IV Titration 750 Amount Sodium Chloride 0.9% 1, 750 000 ml @ 125 mls/hr IV . Q8H [facility] Rx#:[id number] Other: Voiding Method Urinal # Voids 1 1 Weight 83.461 kg 83.461 kg 83.461 kg Patient Weight 07/08/17 06:59 Weight 83.461 kg 07/07/17 07:17 07/07/17 07:17 Assessment and Plan Assessment: ASSESSMENT 1. Elevated troponins 2. History of CAD with stenting to LAD 2011 3. Hypertension 4. Acute kidney injury 5. Paroxysmal atrial fibrillation on forder operator anticoagulation with Eliquis currently controlled ventricular response. 6. Sick sinus syndrome with permanent pacemaker implantation 7. Hyperlipidemia 8. Diabetes mellitus on oral hyperglycemia agent PLAN Elevated troponin most likely secondary to acute kidney injury and dehydration with episodes of hyotentsion. We will check an echocardiogram to evaluate cardiac structure and function. Use fluids cautiously to rehydrate. Further recommendations will be based upon clinical course. Nurse Practitioner note has been reviewed, I agree with a documented findings and plan of care. Patient was seen and examined.
[2017-07-07 17:26] LABS: Glucose,Whole Blood 155 mg/dL (75-99)
[2017-07-07 20:25] LABS: Glucose,Whole Blood 165 mg/dL (75-99)
[2017-07-07] MEDS: AMITRIPTYLINE HCL 25 MG TAB PO SCH (21:24)
[2017-07-08] MEDS: SODIUM CHLORIDE 0.9% 1,000 ML IV SCH ×4 (00:20→20:15)
[2017-07-08] MEDS: HYDROcodone/APAP 7.5-325MG 1 EACH TAB PO PRN ×2 (06:00→18:17)
[2017-07-08 07:06] LABS: Glucose,Whole Blood 167 mg/dL (75-99)
--- NOTE | 2017-07-08 07:32 | CONS ---
CONSULTATION DATE OF CONSULTATION: 07/07/2017 Patient was seen this morning. REASON FOR CONSULT: Renal failure. HISTORY OF PRESENT ILLNESS: Patient is an 86-year-old male who was admitted to the hospital with complaints of weakness and being unsteady. Patient denies any prior history of kidney diseases. His serum creatinine was 3.7 mg/dL on admission. Review of previous labs from 2014 shows serum creatinine 1.72. We do not have any other labs available. Patient denies any prior history of kidney diseases. His blood pressure has been low and he has been at 93 mmHg for systolic. Patient denies use of any nonsteroidal anti-inflammatory agents and no history of exposure to IV contrast recently. Medications at home did include JENNIFER inhibitors which is currently on hold. Patient is also maintained on IV fluids. He has been voiding in the urinal. Urine output is not charted. PAST MEDICAL HISTORY: Significant for coronary artery disease, type 2 diabetes, hypertension, peripheral vascular disease, osteoarthritis. PAST SURGICAL HISTORY: Left knee arthroplasty, right carotid endarterectomy, tonsillectomy, pacemaker placement, coronary stent placement and cardiac catheterization. SOCIAL HISTORY: Patient is a former smoker. No history of drug abuse or alcohol abuse. MEDICATIONS: At home included Amitriptyline, Eliquis, Lipitor, enalapril/hydrochlorothiazide, [place], isosorbide, Norvasc, Zyloprim, iron, Lopressor, Januvia, Prilosec. ALLERGIES: None. PHYSICAL EXAMINATION: Patient is comfortable. He is awake. He is not in any acute distress. Blood pressure was 95/89, heart rate 59 per minute. He is afebrile. Examination of the heart S1, S2. Examination of the lungs, bilateral breath sounds are heard. Abdomen is soft, nontender. Examination of the lower extremities shows no significant edema. BAND CUTTER exam is grossly intact. LABS SHOW: Sodium 131, potassium 4.3, CO2 is 17, BUN 91, serum creatinine 3.6, calcium 8.2, magnesium 1.3, hemoglobin 11.1 g/dL. ASSESSMENT: 1. Acute kidney injury. Most likely secondary to hypotension and hypoperfusion. Agree with holding off on JENNIFER inhibitors and hold off on all antihypertensive medications for now. Continue with the IV fluids. UA shows a few WBCs, but multiple hyaline casts suggestive of some degree of acute tubular necrosis. An abdominal ultrasound shows no evidence of hydronephrosis. Right kidney was 9.7, left kidney 10.3 cm. 2. Mild hyponatremia secondary to renal failure. We will repeat labs in a.m. 3. Rule out chronic kidney disease. Previous creatinine was 1.7 in July of 2015. 4. Hypotension. 5. History of cerebrovascular accident. 6. Coronary artery disease with history of coronary stenting. 7. Elevated troponins. 8. Paroxysmal atrial fibrillation maintained on Eliquis with controlled ventricular response. PLAN: Continue IV fluids. Repeat labs in a.m. and check urine culture if not done yet. Thank you for this consultation. Will continue to follow the patient with you during his hospitalization. MMODL / IJN: [id number] /
[2017-07-08] MEDS: METOPROLOL TARTRATE 25 MG TAB PO SCH ×3 (08:04→20:14)
[2017-07-08] MEDS: ISOSORBIDE MONONITRATE ER 30 MG TAB.ER.24H PO SCH (08:04)
[2017-07-08] MEDS: ATORVASTATIN 20 MG TAB PO SCH (08:27)
[2017-07-08] MEDS: PANTOPRAZOLE 40 MG TABLET PO SCH ×2 (08:27→18:12)
[2017-07-08] MEDS: INSULIN ASPART 100 UNIT/ML 1 ML 10 ML VIAL SQ SCH ×4 (08:27→20:15)
[2017-07-08] MEDS: ASPIRIN 81 MG PO SCH (08:27)
[2017-07-08] MEDS: APIXABAN 2.5 MG TABLET PO SCH (08:27)
[2017-07-08] MEDS: FERROUS SULFATE 325 MG TAB PO SCH (08:27)
[2017-07-08 08:41] LABS: Calcium 8.1 mg/dL (8.4-10.2); Magnesium 1.5 mg/dL (1.6-2.3); Potassium 4.4 mmol/L (3.5-5.1)
[2017-07-08] MEDS ORDERED: HEPARIN SODIUM,PORCINE 5,000 UNIT/ML 1 ML VIAL IV ONE (10:19)
[2017-07-08] MEDS ORDERED: HEPARIN SODIUM,PORCINE 5,000 UNIT/ML 1 ML VIAL IV PRN (10:19)
[2017-07-08] MEDS: MAGNESIUM SULFATE-D5W PMX 1 GM in DEXTROSE/WATER 1 100ML.BAG IVPB ONE ×2 (10:26→10:27)
[2017-07-08] MEDS ORDERED: SODIUM CHLORIDE 0.9% 1,000 ML IV SCH (10:30)
--- NOTE | 2017-07-08 10:40 | XR ---
EXAMINATION TYPE: XR chest 1V portable DATE OF EXAM: 07/08/2017 CLINICAL HISTORY: Difficulty breathing and pleural effusion. TECHNIQUE: Single AP portable upright view of the chest is obtained. COMPARISON: Chest x-ray from [address] abdomen and pelvis from one day earlier. FINDINGS: There is persistent cardiomegaly with dual lead pacemaker and atherosclerotic thoracic aor ta. There is persistent left greater than right bibasilar opacity felt to reflect atelectasis and/or infiltrate. Tiny bilateral pleural effusions are present seen better on recent CT presumed stable. Di minished inspiration on current study is noted.. Osseous structures are demineralized. IMPRESSION: Overall stable findings, persistent tiny bilateral pleural effusions seen better on rec ent CT. Low lung volumes and cardiomegaly with patchy left greater than right bibasilar atelectasis a nd/or infiltrate. Diminished inspiration on current study is noted likely slightly exaggerating findi ngs versus most recent chest x-ray.
--- NOTE | 2017-07-08 10:42 | P.PN ---
Subjective Progress Note Date: 07/08/17 Principal diagnosis: Patient is seen and examined today in follow up for MIN, hypotension and elevated troponins 86 year old male with PMHx of DM, CAD, HTN, CVA Patient presented due to generalized weakness and fatigue of new onset over the past 5 days and was worsening, he reported doing long hours of physical work in his back yard for the past few weeks. ALso reported postural dizziness. He was admitted for IVF hydration due to MIN from dehydration. Today patient was seen and RN reported episodes of trouble breathing with the slightest activity. patient reports that his back pain is better controlled today , denies any chest pain but admits to some upper abd discomfort, he has not passed a bowel movement for 2 days but denies feeling bloated or nauseated. he is not very talkative at his baseline and hard of hearing. His blood pressure has been running low this morning, and patient has not made alot of urine overnight, since yesterday only 300 cc were charted, raises concerns for oliguria despite being on 125 cc/hr NS, urinary bladder scanning did not show residual urine post voiding this morning. CT scan of the abd and retroperitoneal renal US , did not reveal any evidence of hydronephrosis or nephrolithiasis. Patient continues to complain of weakness in bilateral Upper and lower extremities ,but otherwise denies nausea and vomiting, or chest pain . He reports poor appetite. I discussed the case with patient over the phone, who expressed concerns that her has been getting worse at home since last Friday, and this is all new to him. This morning troponins were still trending up , I discussed the case with cardiology, who confirmed associated global hypokinesis on the 2D echo cardiogram with LVEF of around 30%. Case discussed with Latha from critical care service for transferring the patient to the ICU to start him on dopamin drip and for close monitoring Objective - Vital Signs Vital signs: Vital Signs Temp 98.2 F 07/08/17 07:00 Pulse 59 L 07/08/17 07:37 Resp 18 07/08/17 07:37 BP 88/55 07/08/17 07:00 Pulse Ox 97 07/08/17 07:00 Intake & Output 07/07/17 07/08/17 07/08/17 18:59 06:59 18:59 Intake Total 1300 1590 Output Total 300 0 Balance 1300 1290 0 Weight 83.461 kg Intake: Intake, IV Titration 1300 1000 Amount Magnesium Sulfate-D5w Pmx 100 1 gm In Dextrose/Water 1 100ml.bag @ 25 mls/hr IVPB ONCE ONE Rx#: [id number] Sodium Chloride 0.9% 1, 1200 1000 000 ml @ 125 mls/hr IV . Q8H [facility] Rx#:[id number] Oral 590 Output: Urine 300 0 Other: Voiding Method Toilet Toilet Toilet Urinal Urinal Urinal # Voids 2 1 - Exam Constitutional: Hypotensive this morning , Not in acute distress, pleasant, talks only short sentences (this is at baseline per the ) Lungs: good breath sounds bilaterally with some fine inspiratory rales more on the left compared to right side, no wheezes Cardiovascular: Regular rate and rhythm, no murmurs, no gallops, no rubs, no peripheral edema Gastrointestinal: Soft, no tenderness to palpation of the abd, mild upper abd distention, bowel sounds positive, no abdominal wall hernias Extremities: No digital cyanosis or clubbing, capillary refil immediate over bilateral toes and fingers, peripheral pulses palpable and equal over bilateral radial arteries and dorsalis pedis artery, no calf muscle tenderness Psych: Alert, oriented to place, person - Labs CBC & Chem 7: 07/07/17 07:17 07/08/17 07:11 Labs: Abnormal Lab Results - Last 24 Hours (Table) 07/07/17 07/07/17 07/07/17 Range/Units 11:06 17:21 20:24 Sodium (137-145) mmol/L Carbon Dioxide (22-30) mmol/L BUN (9-20) mg/dL Creatinine (0.66-1.25) mg/dL Glucose (74-99) mg/dL POC Glucose (mg/dL) 143 H 155 H 165 H (75-99) mg/dL Calcium (8.4-10.2) mg/dL Magnesium (1.6-2.3) mg/dL Troponin I (0.000-0.034) ng/mL 07/08/17 07/08/17 07/08/17 Range/Units 07:05 07:11 08:10 Sodium 130 L (137-145) mmol/L Carbon Dioxide 13 L (22-30) mmol/L BUN 103 H* (9-20) mg/dL Creatinine 3.60 H (0.66-1.25) mg/dL Glucose 153 H (74-99) mg/dL POC Glucose (mg/dL) 167 H (75-99) mg/dL Calcium 8.1 L (8.4-10.2) mg/dL Magnesium 1.5 L (1.6-2.3) mg/dL Troponin I 15.200 H* (0.000-0.034) ng/mL Microbiology - Last 24 Hours (Table) 07/07/17 02:35 Urine Culture - Preliminary Urine,Voided Assessment and Plan Assessment: 86 year old male presented with generalized fatigue and postural dizziness. admitted for MIN due to dehydration. However yesterday , he was noted to have trending up troponins, cardiology was involved, this morning he is hypotensive and his troponin contined to trend up, His echo cardiogram suggested LVEF of around 30%, patient is oliguric, for which he will be transferred to the ICU for dopamin drip and close monitoring. Cardiology has no recommendations for immediate need of heart cath at this time. No clear evidence of infectious etiology at this time, patient had one episode of subclinical fever with temp of 100.3 (>24 hours ago) no other episodes of fever, no leukocytosis, await urine culture with equivocal UA. initial CXR did not suggest any acute process. (1) Acute renal failure Narrative/Plan: acute MIN 2/2 prerenal ATN from dehydration and cardiorenal syndrome with hypotension and poor perfusion avoid nephrotoxic meds IVF hydration decreased to 75 cc per hour due to clinical evidence of slight pleural effusion monitor urine output and renal function closely rodrigez cath for strict I/O nephrology following Current Visit: Yes Status: Acute Code(s): N17.9 - ACUTE KIDNEY FAILURE, UNSPECIFIED SNOMED Code(s): 57046011 (2) CHF (congestive heart failure) Narrative/Plan: new onset systolic CHF with LVEF of around 30% per 2d Echocardiogram, with global hypokinesis Elevated troponins r/o NSTEMI Hypotension with component of cardiogenic shock patient will be transferred to the ICU for further care, and starting a dopamin drip per cardiology no immediate recommendation for left heart cath at this time per cardiology continue with ASA, BB, imdur with hold parameters for low systolic BP continue with statin ACEI on hold due to MIN Current Visit: Yes Status: Acute Code(s): I50.9 - HEART FAILURE, UNSPECIFIED SNOMED Code(s): 31165212 (3) Back pain Narrative/Plan: no focal neurologic deficits CT wo cont, showed no acute abn, no evidence of nephrolithiasis pain control symptomatic Current Visit: Yes Status: Acute Code(s): M54.9 - DORSALGIA, UNSPECIFIED SNOMED Code(s): 172784508 (4) Generalized weakness Narrative/Plan: this is most likely multifactorial related to uremia and new CHF check CT of the brain without contrast to r/o stroke Current Visit: Yes Status: Acute Code(s): R53.1 - WEAKNESS SNOMED Code(s) : 06473500 (5) Diabetes Narrative/Plan: insulin sliding scale , blood sugar controlled Current Visit: No Status: Acute Code(s): E11.9 - TYPE 2 DIABETES MELLITUS WITHOUT COMPLICATIONS SNOMED Code(s): 10364463 (6) HTN (hypertension) Narrative/Plan: Hypotensive now , as discussed above Current Visit: No Status: Chronic Code(s): I10 - ESSENTIAL (PRIMARY) HYPERTENSION SNOMED Code(s): 20658024 (7) Hyperlipemia Narrative/Plan: continue statin Current Visit: No Status: Chronic Code(s): E78.5 - HYPERLIPIDEMIA, UNSPECIFIED SNOMED Code(s): 22784556 (8) Paroxysmal a-fib Narrative/Plan: rate controlled on Eliquis and BB Current Visit: No Status: Acute Code(s): I48.0 - PAROXYSMAL ATRIAL FIBRILLATION SNOMED Code(s): 872422024 (9) DVT prophylaxis Narrative/Plan: on eliquis for P. afib Current Visit: Yes Status: Acute Code(s): WIW7009 - SNOMED Code(s): 318040522 Plan: case discussed in length with cardiology , critical care, and patient and his . Patient will be transferred to the critical care unit for intensity of care, strict I/O and dopamin drip for cardiogenic shock and oliguria Prognosis is guarded Code status should be revised once patient is available again
--- NOTE | 2017-07-08 10:54 | ECHOF ---
Referral Reason:shortness of breath MEASUREMENTS -------- HEIGHT: 162.6 cm WEIGHT: 83.5 kg BP: 98/59 RVIDd: 3.0 cm (< 3.3) IVSd: 1.2 cm (0.6 - 1.1) LVIDd: 4.2 cm (3.9 - 5.3) LVPWd: 1.2 cm (0.6 - 1.1) IVSs: 1.4 cm LVIDs: 2.9 cm LVPWs: 1.4 cm LAESV Index (A-L): 42.50 ml/m Ao Diam: 3.0 cm (2.0 - 3.7) AV Cusp: 1.7 cm (1.5 - 2.6) LA Diam: 5.3 cm (2.7 - 3.8) MV E Asad: 1.14 m/s MV DecT: 182 ms MV A Asad: 0.54 m/s MV E/A Ratio: 2.10 RAP: 5.00 mmHg RVSP: 39.12 mmHg FINDINGS -------- Ventricularly paced rhythm. This was a technically difficult study with suboptimal views. The left ventricular size is normal. There is mild concentric left ventricular hypertrophy. Overa ll left ventricular systolic function is moderate-severely impaired with, an EF between 30 - 35 %. Lateral hypokinesis The right ventricle is normal in size and function. LA is severely dilated >40 ml/m2 RA appears enlarged. 1.5mg of Definity was utilized for enhancement of images Aortic valve is trileaflet and is mildly thickened. There is no evidence of aortic regurgitation. There is no evidence of aortic stenosis. The mitral valve leaflets are mildly thickened. Mild mitral annular calcification present. Modera fa-ic-vzjfcj mitral regurgitation is present. Mild tricuspid regurgitation present. There is mild pulmonary hypertension. The right ventricular systolic pressure, as measured by Doppler, is 39.12mmHg. The pulmonic valve was not well visualized. The aortic root size is normal. IVC Not well visulized. The pericardium is normal. There is no pericardial effusion. CONCLUSIONS -------- 1. Ventricularly paced rhythm. 2. This was a technically difficult study with suboptimal views. 3. The left ventricular size is normal. 4. There is mild concentric left ventricular hypertrophy. 5. Overall left ventricular systolic function is moderate-severely impaired with, an EF between 30 - 35 %. 6. Lateral hypokinesis 7. LA is severely dilated >40 ml/m2 8. RA appears enlarged. 9. 1.5mg of Definity was utilized for enhancement of images 10. Aortic valve is trileaflet and is mildly thickened. 11. The mitral valve leaflets are mildly thickened. 12. Mild mitral annular calcification present. 13. Ymetuwxt-gt-aehenl mitral regurgitation is present. 14. Mild tricuspid regurgitation present. 15. There is mild pulmonary hypertension. 16. The right ventricular systolic pressure, as measured by Doppler, is 39.12mmHg. 17. The pulmonic valve was not well visualized. 18. The aortic root size is normal. 19. IVC Not well visulized. 20. There is no pericardial effusion. PREVENTATIVE MAINTENANCE TECHNICIAN: Jarod Aguirre RDCS
[2017-07-08 10:58] LABS: INR 1.1 (<1.2); Partial Thromboplastin Time 30.4 sec (22.0-30.0); Prothrombin Time 11.4 sec (9.0-12.0)
[2017-07-08 11:01] LABS: Glucose,Whole Blood 171 mg/dL (75-99)
[2017-07-08 11:11] LABS: Basophils % (A) 0 %; CH 33.3; Eosinophils % (A) 0 %; HCT 35.6 % (39.0-53.0); HDW 2.54; HGB 11.3 gm/dL (13.0-17.5); Luc # (Auto) 0.15; Luc % (Auto) 1; Lymphocytes # (A) 0.3 k/uL (1.0-4.8); Lymphocytes % (A) 2 %; MCH 32.2 pg (25.0-35.0); MCHC 31.8 g/dL (31.0-37.0); MCV 101.3 fL (80.0-100.0); Macrocytosis Slight; Mean Platelet Volume 8.6; Monocytes # (A) 0.6 k/uL (0-1.0); Monocytes % (A) 5 %; Neutrophils # (A) 11.2 k/uL (1.3-7.7); Neutrophils % (A) 92 %; RBC 3.52 m/uL (4.30-5.90); WBC 12.3 k/uL (3.8-10.6); WBC (Perox) 12.47
--- NOTE | 2017-07-08 11:17 | PN ---
PROGRESS NOTE Mr. Giles is an 86-year-old gentleman who was admitted with a change in the mental status and acute renal failure yesterday. It was thought to be due to the dehydration, possible underlying infection needs to be ruled out. Patient had only one-time temperature of 100.3. Over the last 12 hours, patient has not been doing well. His urine output remains poor. His total urine output was about 300 mL over the last 12 hours. Patient's blood pressure is running borderline in the range of 90. Echocardiogram shows evidence of global hypokinesia with ejection fraction of about 35%. Apical hypokinesia is possibly secondary to underlying paced rhythm. Patient's troponin went up to 15.2. Patient did not complain of any chest pain. IMPRESSION: This patient is admitted with the acute change in the mental status and patient has a cute on chronic renal failure. Patient remains oliguric with worsening renal failure. Patient does have a borderline low blood pressure and moderately impaired left ventricular systolic function. Underlying sepsis needs to be ruled out. This could be a combination about septic and cardiogenic shock and worsening renal failure. Discussed the condition with Dr. White. We will transfer the patient to the select intensive care unit for close monitoring. Critical care consultation would be obtained and we will repeat the lactic acid level and patient will be started on dopamine to maintain the blood pressure and improve the cardiac output. Patient's overall prognosis remains guarded. MMADILENEL / NASRAN: [id number] /
[2017-07-08] MEDS: HEPARIN SODIUM,PORCINE/D5W PMX 25,000 UNIT in DEXTROSE/WATER 1 500ML.BAG IV SCH (11:18)
[2017-07-08] MEDS: DEXTROSE/WATER 1 500ML.BAG with DOPamine DRIP 800 MG IV SCH (11:20)
[2017-07-08 11:36] LABS: Appearance,Urine Clear (Clear); Bacteria,Urine Occasional /hpf; Bilirubin,Urine Negative (Negative); Glucose,Urine (UA) Negative (Negative); Ketones,Urine Negative (Negative); Leukocyte Esterase,Urine Small (Negative); Nitrite,Urine Negative (Negative); Particle Count 6499; Protein,Urine Negative (Negative); Specific Gravity,Urine 1.014 (1.001-1.035); Squamous Epithelial Cell,Urine 6 /hpf (0-4); UA Billing (MACRO vs. MICRO) MICRO; Urobilinogen,Urine <2.0 mg/dL (<2.0); WBC,Urine 2 /hpf (0-5)
--- NOTE | 2017-07-08 11:51 | P.CNPUL ---
History of Present Illness Consult date: 07/08/17 Requesting physician: Nestor Blanco Reason for consult: other (Critical care management) Chief complaint: Generalized weakness and fatigue with back pain and difficulty walking History of present illness: This is a pleasant 86-year-old gentleman who follows with Dr. Gamino as his primary care physician. He has a history of coronary artery disease with previous stent placement, chronic atrial fibrillation anticoagulated with Eliquis, status post permanent pacemaker implantation, diabetes mellitus, hypertension, previous history of chronic tobacco dependence, carotid stenosis with previous right carotid endarterectomy. He was brought to the emergency room on 07/06/2017 after developing profound weakness and fatigue. His had trouble getting him up out of a chair twice within 24 hours. He had lower extremity weakness and a difficult time standing. He was found to have acute renal failure on top of chronic renal insufficiency admitted to the regular medical floor. Presenting BUN of 89 and a creatinine of 3.70 currently 103 and 3.60 respectively. Ultrasound of the abdomen ruled out hydronephrosis and there was some enlarged prostate. Computed tomography scan of the abdomen revealed no evidence of hydronephrosis or nephrolithiasis. There was a small amount of free fluid within the pelvis. Basilar atelectasis/effusions. No significant leukocytosis. Hemoglobin stable. Echocardiogram from yesterday revealed moderate to severely impaired left ventricular systolic function with estimated ejection fraction 30-35%. There is lateral wall hypokinesia. He was found to have elevated troponin of 15.20 and developed hypotension and was transferred here to the intensive care unit this morning. We're consulted for critical care management. Presently, the patient is awake and alert in no acute distress. He is quite hard of hearing. He does deny any chest pain, palpitations lightheadedness or dizziness. He denies any shortness of breath, cough or congestion. He denies any abdominal discomfort. He has been initiated on a heparin drip along with the dope the mean drip at 2.5 mcg/kg/m. His Imdur and beta blockers were held. His current blood pressure is 90/50 with a mean arterial pressure 63. His heart rate is in the 60s, atrial fibrillation. Review of Systems A 14 point review of system was conducted. All negative other than as mentioned in the HPI. Past Medical History Past Medical History: Coronary Artery Disease (CAD), Diabetes Mellitus, Hypertension History of Any Multi-Drug Resistant Organisms: None Reported Past Surgical History: Heart Catheterization With Stent, Pacemaker, Tonsillectomy Additional Past Surgical History / Comment(s): left knee replacement, plate in back, right carotid endarterectomy Past Anesthesia/Blood Transfusion Reactions: No Reported Reaction Date of Last Stent Placement:: unknown Type of Cardiac Device: Unknown Device Placement Date:: unknown Smoking Status: Former smoker - Past Family History Father Family Medical History: Coronary Artery Disease (CAD) Mother Family Medical History: Myocardial Infarction ([place]) Medications and Allergies Home Medications Medication Instructions Recorded Confirmed Type Amitriptyline HCl 25 mg PO HS 03/16/15 07/06/17 History Apixaban [Eliquis] 2.5 mg PO BID 03/16/15 07/06/17 History Atorvastatin [Lipitor] 20 mg PO DAILY 03/16/15 07/06/17 History HYDROcodone/APAP 7.5-325MG [[place] 1 tab PO Q6HR PRN 03/16/15 07/06/17 History 7.5-325] Isosorbide Mononitrate ER [Imdur] 30 mg PO DAILY 03/16/15 07/06/17 History Nitroglycerin Sl Tabs [Nitrostat] 0.4 mg SUBLINGUAL Q5M PRN 03/16/15 07/06/17 History Omeprazole [PriLOSEC] 20 mg PO AC-BID 03/16/15 07/06/17 History amLODIPine BESYLATE [Norvasc] 10 mg PO DAILY 03/16/15 07/06/17 History Allopurinol [Zyloprim] 100 mg PO DAILY #30 tab 03/23/15 07/06/17 Rx Ferrous Sulfate [Feosol] 325 mg PO DAILY 09/10/16 07/06/17 History Metoprolol Tartrate [Lopressor] 25 mg PO TID 09/10/16 07/06/17 History sitaGLIPtin PHOSPHATE [Januvia] 100 mg PO DAILY 07/06/17 07/06/17 History Enalapril Maleate [Vasotec] 10 mg PO DAILY 07/07/17 07/07/17 History Allergies Allergy/AdvReac Type Severity Reaction Status Date / Time No Known Allergies Allergy Verified 07/06/17 22:21 Physical Exam Vitals: Vital Signs Temp Pulse Pulse Resp BP Pulse Ox 07/08/17 10:00 65 20 90/50 07/08/17 07:37 59 L 63 18 07/08/17 07:00 98.2 F 63 18 88/55 97 07/08/17 00:00 59 L 59 L 16 07/07/17 22:43 97.1 F L 59 L 16 113/56 96 07/07/17 15:24 59 L 89 18 07/07/17 14:52 97.3 F L 89 18 95/89 95 Intake and Output 07/07/17 07/08/17 07/08/17 22:59 06:59 14:59 Intake Total 590 1000 Output Total 300 0 Balance 290 1000 0 Intake: Intake, IV Titration 1000 Amount Sodium Chloride 0.9% 1, 1000 000 ml @ 125 mls/hr IV . Q8H [facility] Rx#:[id number] Oral 590 Output: Urine 300 0 Other: Voiding Method Toilet Toilet Toilet Urinal Urinal Urinal # Voids 2 1 Weight 83.461 kg GENERAL EXAM: Alert, comfortable in no apparent distress. HEAD: Normocephalic. EYES: Normal reaction of pupils, equal size. NOSE: Clear with pink turbinates. THROAT: No erythema or exudates. NECK: No masses, no JVD. CHEST: No chest wall deformity. LUNGS: Equal air entry with a cousin the posterior bases. CVS: S1 and S2 normal with anaudible murmur, irregular rhythm. ABDOMEN: No hepatosplenomegaly, normal bowel sounds, no guarding or rigidity. SPINE: No scoliosis or deformity SKIN: No rashes CENTRAL NERVOUS SYSTEM: No focal deficits, tone is normal in all 4 extremities. EXTREMITIES: There is trace peripheral edema. No clubbing, no cyanosis. Peripheral pulses are intact. Results - Laboratory Findings CBC and BMP: 07/07/17 07:17 07/08/17 07:11 PT/INR, D-dimer PT 11.4 sec (9.0-12.0) 07/08/17 08:10 INR 1.1 (<1.2) 07/08/17 08:10 Abnormal lab findings: Abnormal Labs 07/06/17 07/06/17 07/06/17 22:14 22:14 22:14 WBC 11.6 H RBC 3.96 L Hgb 12.8 L Hct Plt Count 144 L Neutrophils # 10.6 H Lymphocytes # 0.4 L APTT Sodium 133 L Carbon Dioxide 20 L BUN 89 H* Creatinine 3.70 H Glucose 154 H POC Glucose (mg/dL) Calcium Magnesium 1.4 L Alkaline Phosphatase 148 H Total Creatine Kinase 591 H CK-MB (CK-2) 7.4 H* Troponin I 0.150 H* Total Protein 5.7 L Albumin 3.0 L Urine Protein Ur Leukocyte Esterase Urine WBC Hyaline Casts Urine Mucus 07/07/17 07/07/17 07/07/17 02:35 07:01 07:17 WBC 10.8 H RBC 3.41 L Hgb 11.1 L Hct 34.0 L Plt Count 138 L Neutrophils # 9.8 H Lymphocytes # 0.4 L APTT Sodium Carbon Dioxide BUN Creatinine Glucose POC Glucose (mg/dL) 128 H Calcium Magnesium Alkaline Phosphatase Total Creatine Kinase CK-MB (CK-2) Troponin I Total Protein Albumin Urine Protein Trace H Ur Leukocyte Esterase Moderate H Urine WBC 20 H Hyaline Casts 163 H Urine Mucus Rare H 07/07/17 07/07/17 07/07/17 07:17 07:17 07:17 WBC RBC Hgb Hct Plt Count Neutrophils # Lymphocytes # APTT Sodium 131 L Carbon Dioxide 17 L BUN 91 H* Creatinine 3.60 H Glucose 113 H POC Glucose (mg/dL) Calcium 8.2 L Magnesium 1.3 L Alkaline Phosphatase Total Creatine Kinase CK-MB (CK-2) Troponin I 0.451 H* Total Protein 5.1 L Albumin 2.4 L Urine Protein Ur Leukocyte Esterase Urine WBC Hyaline Casts Urine Mucus 07/07/17 07/07/17 07/07/17 11:06 17:21 20:24 WBC RBC Hgb Hct Plt Count Neutrophils # Lymphocytes # APTT Sodium Carbon Dioxide BUN Creatinine Glucose POC Glucose (mg/dL) 143 H 155 H 165 H Calcium Magnesium Alkaline Phosphatase Total Creatine Kinase CK-MB (CK-2) Troponin I Total Protein Albumin Urine Protein Ur Leukocyte Esterase Urine WBC Hyaline Casts Urine Mucus 07/08/17 07/08/17 07/08/17 07:05 07:11 08:10 WBC RBC Hgb Hct Plt Count Neutrophils # Lymphocytes # APTT Sodium 130 L Carbon Dioxide 13 L BUN 103 H* Creatinine 3.60 H Glucose 153 H POC Glucose (mg/dL) 167 H Calcium 8.1 L Magnesium 1.5 L Alkaline Phosphatase Total Creatine Kinase CK-MB (CK-2) Troponin I 15.200 H* Total Protein Albumin Urine Protein Ur Leukocyte Esterase Urine WBC Hyaline Casts Urine Mucus 07/08/17 07/08/17 08:10 10:58 WBC RBC Hgb Hct Plt Count Neutrophils # Lymphocytes # APTT 30.4 H Sodium Carbon Dioxide BUN Creatinine Glucose POC Glucose (mg/dL) 171 H Calcium Magnesium Alkaline Phosphatase Total Creatine Kinase CK-MB (CK-2) Troponin I Total Protein Albumin Urine Protein Ur Leukocyte Esterase Urine WBC Hyaline Casts Urine Mucus - Diagnostic Findings Chest x-ray: image reviewed Assessment and Plan Assessment: Impression: #1 Non-ST segment elevation myocardial infarction with hypotension. #2 Acute exacerbation of chronic systolic congestive heart failure with estimated ejection fraction 30-35%. #3 History of coronary artery disease with previous stent placement. #4 Chronic atrial fibrillation anticoagulated with Eliquis. Status post permanent pacemaker implantation. #5 Acute on chronic renal failure #6 Diabetes mellitus. #7 Hypertension. #8 Carotid stenosis status post right carotid endarterectomy. #9 Remote history of chronic tobacco dependence. Plan: The patient was seen and evaluated by Dr. Neil. His chest x-ray and labs were reviewed. He has been initiated on a heparin drip along with dopamine. Cardiology is on the case as well. We will continue to monitor him here closely in the intensive care unit. We'll make further recommendations based on his clinical status. I, the cosigning physician, have performed a history and physical examination on the patient. Lung sounds have crackles in the bilateral posterior bases.. Maintaining good O2 saturations in the 90s on 2L/min per nasal cannula. I have discussed the assessment and plan of care with my nurse practitioner, Kimberly Mills. I attest the above documented note as dictated by her. Time with Patient: Greater than 30
--- NOTE | 2017-07-08 13:24 | CDI ---
Documentation Clarification Form ATTENTION: The Clinical Documentation Specialists (CDI) and [facility] Coding Staff appreciate your assistance in clarifying documentation. Please respond to the clarification below the line at the bottom and electronically sign. The CDI & [facility] Coding staff will review the response and follow-up if needed. Please note: Queries are made part of the Legal Health Record. If you have any questions, please contact the author of this message via ITS. Date: 07/08/2017 12:54:00 PM From: Gabbi Lazaro RN, CCDS Admit Date: 07/06/2017 10:52:00 PM Patient Name: Avelino Giles Visit Number: [id number] Dr. Elizabeth White Altered mental status was documented in the notes and requires further specificity. Patient history/risk factors: MIN with ATN, Cardiogenic Shock, NSTEMI, paroxysmal A-Fib, Clinical Indicators: 07/06 ED Note: Altered mental status, generalized weakness, acute renal failure 07/08 Cardiology progress Note: "This patient is admitted with the acute change in the mental status and patient has a cute on chronic renal failure." Labs: WBC 11.6/10.8/12.3, Hgb 12.8/11.1/11.3, BUN 89/91/103, creatinine 3.7/3.6/ 3.6, troponin .15/.45/15.2 CXR: persistent tiny bilateral pleural effusions Treatment: IVF @ 125 cc/hr Dopamine Gtt @ 2.5 mcg /kg/min In your professional opinion, please clarify the etiology of the altered mental status, if known. In your professional opinion, please clarify the etiology of the altered mental status, if known. Encephalopathy (specify Type- Toxic, Metabolic, Anoxic, Hypertensive and Underlying Medical Illness) Delirium (specify cause): Dementia (if know, specify Type and if with/without Behavioral Disturbance) Other condition (please specify) Unable to determine Please continue to document in your progress notes and discharge summary in order to capture severity of illness and risk of mortality. Include clinical findings that support your diagnosis. MTDD
[2017-07-08 17:17] LABS: Glucose,Whole Blood 177 mg/dL (75-99)
[2017-07-08] MEDS ORDERED: FUROSEMIDE 10 MG/ML 4 ML VIAL IV STA (18:12)
--- NOTE | 2017-07-08 20:14 | PN ---
PROGRESS NOTE Patient is seen for followup for acute kidney injury. He was transferred to the ICU earlier today. The patient's blood pressure remains on the lower side. He had been down as low as 76 and 44/37. The patient has been started on dopamine. He is also maintained on IV fluids. So far, urine cultures are negative. Urine output has been at about 300. However, I see that there is a Morales catheter placed now. EXAMINATION: Patient is comfortable. Blood pressure earlier today was 96/55, heart rate of 73 per minute. Patient is afebrile. Examination of the heart S1, S2. Examination lungs bilateral breath sounds are heard. Decreased breath sounds at bases. Abdomen is soft, nontender. Examination lower extremity shows chronic skin changes. No significant edema noted. LABS SHOW: Hemoglobin 11.3 g/dL. UA is benign. There are hyaline casts noted. Serum creatinine is 3.6, BUN of 103, CO2 is at 13. Sodium 130, potassium 4.4, magnesium 1.5 g/dL. ASSESSMENT: 1. Acute kidney injury secondary to hypotension hypoperfusion currently nonoliguric. 2. Severe metabolic acidosis secondary to renal failure and possibly exacerbated by the hypoperfusion and hypotension. Lactic acid was not high on July 06, it was not repeated. 3. Hypomagnesemia, being replaced. 4. Hypotension, rule out adrenal insufficiency. 5. History of hypertension. Blood pressure currently low and antihypertensive medications on hold. PLAN: Check random cortisol level. Continue pressors as needed. Follow up on the cultures and monitor urine output. Continue to avoid nephrotoxic agents. Add sodium bicarb. I will add IV bicarb drip for about 24 hours additionally. MMODL / IJN: [id number] /
[2017-07-08 20:15] LABS: Glucose,Whole Blood 250 mg/dL (75-99)
[2017-07-08] MEDS: AMITRIPTYLINE HCL 25 MG TAB PO SCH (20:15)
[2017-07-08] MEDS ORDERED: ACETAMINOPHEN SUPPOSITORY 650 MG SUPP RECTAL PRN (20:42)
[2017-07-08] MEDS ORDERED: MORPHINE SULFATE 10 MG/ML SYRINGE IVP PRN (20:42)
[2017-07-08] MEDS: SODIUM BICARBONATE TAB 650 MG TAB PO SCH (20:43)
[2017-07-09] MEDS ORDERED: MORPHINE SULFATE 10 MG/ML SYRINGE ONE (02:00)
[2017-07-09] MEDS ORDERED: DEXTROSE 5% IN WATER 1,000 ML with SODIUM BICARB (1 MEQ/ML) 150 ML IV ONE ×2 (02:00→15:45)
[2017-07-09 04:36] LABS: Basophils % (A) 0 %; CH 32.4; CHCM 30.9; Eosinophils % (A) 0 %; HCT 37.1 % (39.0-53.0); HDW 2.52; HGB 11.4 gm/dL (13.0-17.5); Hypochromasia Slight; Luc % (Auto) 2; Lymphocytes # (A) 0.2 k/uL (1.0-4.8); Lymphocytes % (A) 1 %; MCH 32.5 pg (25.0-35.0); MCHC 30.8 g/dL (31.0-37.0); MCV 105.5 fL (80.0-100.0); Macrocytosis Moderate; Mean Platelet Volume 8.4; Monocytes # (A) 0.9 k/uL (0-1.0); Monocytes % (A) 5 %; Neutrophils # (A) 15.4 k/uL (1.3-7.7); Neutrophils % (A) 92 %; RBC 3.52 m/uL (4.30-5.90); RDW 13.8 % (11.5-15.5); WBC 16.9 k/uL (3.8-10.6); WBC (Perox) 16.99
[2017-07-09 04:46] LABS: Magnesium 1.9 mg/dL (1.6-2.3); Phosphorus 5.3 mg/dL (2.5-4.5); Potassium 4.2 mmol/L (3.5-5.1)
[2017-07-09] MEDS ORDERED: VANCOMYCIN 1,000 MG in SODIUM CHLORIDE 0.9% 250 ML IVPB STA (05:21)
[2017-07-09] MEDS: HEPARIN SODIUM,PORCINE/D5W PMX 25,000 UNIT in DEXTROSE/WATER 1 500ML.BAG IV SCH (06:06)
--- NOTE | 2017-07-09 07:01 | XR ---
EXAMINATION TYPE: XR chest 1V DATE OF EXAM: 07/09/2017 CLINICAL HISTORY: Difficulty breathing an pleural effusion progress study. TECHNIQUE: Single AP portable upright view of the chest is obtained. COMPARISON: Chest x-ray from one day earlier FINDINGS: There is cardiomegaly with dual lead pacemaker and atherosclerotic thoracic aorta redemons trated. There is small left pleural effusion. Right sided small effusion is seen better on recent CT. There is bibasilar opacity consistent with atelectasis and/or infiltrate. Overlying oxygen tubing an d EKG wires is present currently. Osseous structures are demineralized with degenerative changes in b oth shoulders seen. IMPRESSION: Overall stable findings, persistent low lung volumes and cardiomegaly with small bilate ral pleural effusions and patchy bibasilar atelectasis and/or infiltrate all redemonstrated.
[2017-07-09] MEDS: ISOSORBIDE MONONITRATE ER 30 MG TAB.ER.24H PO SCH (07:28)
[2017-07-09] MEDS: METOPROLOL TARTRATE 25 MG TAB PO SCH ×3 (07:28→20:35)
[2017-07-09 07:40] LABS: Glucose,Whole Blood 240 mg/dL (75-99)
[2017-07-09] MEDS: PANTOPRAZOLE 40 MG TABLET PO SCH (07:42)
[2017-07-09] MEDS: FERROUS SULFATE 325 MG TAB PO SCH (07:42)
[2017-07-09] MEDS: ASPIRIN 81 MG PO SCH (07:42)
[2017-07-09] MEDS: ATORVASTATIN 20 MG TAB PO SCH (07:42)
[2017-07-09] MEDS: SODIUM BICARBONATE TAB 650 MG TAB PO SCH ×3 (07:43→20:35)
[2017-07-09] MEDS: NOREPINEPHRIN 4 MG-0.9% NS PMX 4 MG/250 ML ML IV SCH ×2 (08:10→20:22)
[2017-07-09] MEDS: INSULIN ASPART 100 UNIT/ML 1 ML 10 ML VIAL SQ SCH ×4 (08:41→21:48)
[2017-07-09] MEDS ORDERED: VANCOMYCIN IV PER PHARMACY 1 EACH MISC MISCELLANE PRN (09:31)
--- NOTE | 2017-07-09 10:16 | P.PN ---
Subjective Progress Note Date: 07/09/17 Principal diagnosis: Altered mental status, acute renal failure, non-ST segment elevation myocardial infarction. This is a pleasant 86-year-old gentleman who follows with Dr. Gamino as his primary care physician. He has a history of coronary artery disease with previous stent placement, chronic atrial fibrillation anticoagulated with Eliquis, status post permanent pacemaker implantation, diabetes mellitus, hypertension, previous history of chronic tobacco dependence, carotid stenosis with previous right carotid endarterectomy. He was brought to the emergency room on 07/06/2017 after developing profound weakness and fatigue. His had trouble getting him up out of a chair twice within 24 hours. He had lower extremity weakness and a difficult time standing. He was found to have acute renal failure on top of chronic renal insufficiency admitted to the regular medical floor. Presenting BUN of 89 and a creatinine of 3.70 currently 103 and 3.60 respectively. Ultrasound of the abdomen ruled out hydronephrosis and there was some enlarged prostate. Computed tomography scan of the abdomen revealed no evidence of hydronephrosis or nephrolithiasis. There was a small amount of free fluid within the pelvis. Basilar atelectasis/effusions. No significant leukocytosis. Hemoglobin stable. Echocardiogram from yesterday revealed moderate to severely impaired left ventricular systolic function with estimated ejection fraction 30-35%. There is lateral wall hypokinesia. He was found to have elevated troponin of 15.20 and developed hypotension and was transferred here to the intensive care unit this morning. We're consulted for critical care management. The patient is seen again today 07/09/2017 in follow-up in the intensive care unit. He is awake and alert in no acute distress. He denies any chest pain or palpitations. He denies any worsening shortness of breath, cough or congestion. He is having ongoing issues with hypotension. He remains on dopamine, norepinephrine has been initiated. We will titrate that to try to wean down the dopamine drip currently at 2.5 mcg/kg/m. He remains on heparin drip per cardiology as well. Blood cultures preliminary gram-positive cocci in clusters 2. Vancomycin has been initiated. BUN remains at 113, creatinine 3.43, bicarb 11. He is currently on a bicarb drip at 75 mL's per hour. He is afebrile. Maintaining O2 saturations in the mid 90s on 3 L/m per nasal cannula. Chest x-ray shows persistent low lung volumes small bilateral pleural effusions. Objective - Vital Signs Vital signs: Vital Signs Temp 97.1 F L 07/09/17 08:00 Pulse 81 07/09/17 09:00 Resp 26 H 07/09/17 09:00 BP 93/56 07/09/17 09:00 Pulse Ox 95 07/09/17 09:00 Intake & Output 07/08/17 07/09/17 07/09/17 18:59 06:59 18:59 Intake Total 280.434 2425.763 225 Output Total 514 540 100 Balance 198.333 563.763 125 Weight 88.1 kg 88.3 kg Intake: IV 750 225 Dextrose 5% in Water 1, 300 225 000 ml @ 75 mls/hr IV . [id number] ONE with Sodium Bicarb (1 Meq/ml) 150 ml Rx#:[id number] Sodium Chloride 0.9% 1, 450 000 ml @ 75 mls/hr IV . [id number] [facility] Rx#:[id number] Intake, IV Titration 712.333 353.763 Amount Heparin Sodium,Porcine/ 137.333 278.763 D5w Pmx 25,000 unit In Dextrose/Water 1 500ml. bag @ 11.9 UNITS/KG/HR 19 .86 mls/hr IV .Q24H [facility] Rx#:[id number] Magnesium Sulfate-D5w Pmx 100 1 gm In Dextrose/Water 1 100ml.bag @ 25 mls/hr IVPB ONCE ONE Rx#: [id number] Sodium Chloride 0.9% 1, 475 75 000 ml @ 100 mls/hr IV . Q10H [facility] Rx#:[id number] Output: Urine 514 540 100 Other: Voiding Method Indwelling Catheter Indwelling Catheter Indwelling Catheter # Voids 1 - Exam GENERAL EXAM: Alert, comfortable in no apparent distress. HEAD: Normocephalic. EYES: Normal reaction of pupils, equal size. NOSE: Clear with pink turbinates. THROAT: No erythema or exudates. NECK: No masses, no JVD. CHEST: No chest wall deformity. LUNGS: Equal air entry with a cousin the posterior bases. CVS: S1 and S2 normal with anaudible murmur, irregular rhythm. ABDOMEN: No hepatosplenomegaly, normal bowel sounds, no guarding or rigidity. SPINE: No scoliosis or deformity SKIN: No rashes CENTRAL NERVOUS SYSTEM: No focal deficits, tone is normal in all 4 extremities. EXTREMITIES: There is trace peripheral edema. No clubbing, no cyanosis. Peripheral pulses are intact. - Labs CBC & Chem 7: 07/09/17 04:00 07/09/17 04:00 Labs: Abnormal Lab Results - Last 24 Hours (Table) 07/08/17 07/08/17 07/08/17 Range/Units 08:10 08:10 10:58 WBC 12.3 H (3.8-10.6) k/uL RBC 3.52 L (4.30-5.90) m/uL Hgb 11.3 L (13.0-17.5) gm/dL Hct 35.6 L (39.0-53.0) % MCV 101.3 H (80.0-100.0) fL MCHC (31.0-37.0) g/dL Plt Count 133 L (150-450) k/uL Neutrophils # 11.2 H (1.3-7.7) k/uL Lymphocytes # 0.3 L (1.0-4.8) k/uL APTT 30.4 H (22.0-30.0) sec Sodium (137-145) mmol/L Carbon Dioxide (22-30) mmol/L BUN (9-20) mg/dL Creatinine (0.66-1.25) mg/dL Glucose (74-99) mg/dL POC Glucose (mg/dL) 171 H (75-99) mg/dL Calcium (8.4-10.2) mg/dL Phosphorus (2.5-4.5) mg/dL Urine Blood (Negative) Ur Leukocyte Esterase (Negative) Ur Squamous Epith Cells (0-4) /hpf Urine Bacteria (None) /hpf Hyaline Casts (0-2) /lpf 07/08/17 07/08/17 07/08/17 Range/Units 11:10 16:30 17:15 WBC (3.8-10.6) k/uL RBC (4.30-5.90) m/uL Hgb (13.0-17.5) gm/dL Hct (39.0-53.0) % MCV (80.0-100.0) fL MCHC (31.0-37.0) g/dL Plt Count (150-450) k/uL Neutrophils # (1.3-7.7) k/uL Lymphocytes # (1.0-4.8) k/uL APTT 41.4 H (22.0-30.0) sec Sodium (137-145) mmol/L Carbon Dioxide (22-30) mmol/L BUN (9-20) mg/dL Creatinine (0.66-1.25) mg/dL Glucose (74-99) mg/dL POC Glucose (mg/dL) 177 H (75-99) mg/dL Calcium (8.4-10.2) mg/dL Phosphorus (2.5-4.5) mg/dL Urine Blood Small H (Negative) Ur Leukocyte Esterase Small H (Negative) Ur Squamous Epith Cells 6 H (0-4) /hpf Urine Bacteria Occasional H (None) /hpf Hyaline Casts 3 H (0-2) /lpf 07/08/17 07/08/17 07/09/17 Range/Units 20:12 22:30 04:00 WBC 16.9 H (3.8-10.6) k/uL RBC 3.52 L (4.30-5.90) m/uL Hgb 11.4 L (13.0-17.5) gm/dL Hct 37.1 L (39.0-53.0) % MCV 105.5 H (80.0-100.0) fL MCHC 30.8 L (31.0-37.0) g/dL Plt Count 147 L (150-450) k/uL Neutrophils # 15.4 H (1.3-7.7) k/uL Lymphocytes # 0.2 L (1.0-4.8) k/uL APTT 56.7 H (22.0-30.0) sec Sodium (137-145) mmol/L Carbon Dioxide (22-30) mmol/L BUN (9-20) mg/dL Creatinine (0.66-1.25) mg/dL Glucose (74-99) mg/dL POC Glucose (mg/dL) 250 H (75-99) mg/dL Calcium (8.4-10.2) mg/dL Phosphorus (2.5-4.5) mg/dL Urine Blood (Negative) Ur Leukocyte Esterase (Negative) Ur Squamous Epith Cells (0-4) /hpf Urine Bacteria (None) /hpf Hyaline Casts (0-2) /lpf 07/09/17 07/09/17 07/09/17 Range/Units 04:00 04:00 07:38 WBC (3.8-10.6) k/uL RBC (4.30-5.90) m/uL Hgb (13.0-17.5) gm/dL Hct (39.0-53.0) % MCV (80.0-100.0) fL MCHC (31.0-37.0) g/dL Plt Count (150-450) k/uL Neutrophils # (1.3-7.7) k/uL Lymphocytes # (1.0-4.8) k/uL APTT 78.7 H (22.0-30.0) sec Sodium 132 L (137-145) mmol/L Carbon Dioxide 11 L (22-30) mmol/L BUN 113 H* (9-20) mg/dL Creatinine 3.43 H (0.66-1.25) mg/dL Glucose 191 H (74-99) mg/dL POC Glucose (mg/dL) 240 H (75-99) mg/dL Calcium 8.0 L (8.4-10.2) mg/dL Phosphorus 5.3 H (2.5-4.5) mg/dL Urine Blood (Negative) Ur Leukocyte Esterase (Negative) Ur Squamous Epith Cells (0-4) /hpf Urine Bacteria (None) /hpf Hyaline Casts (0-2) /lpf Microbiology - Last 24 Hours (Table) 07/08/17 11:07 Blood Culture Gram Stain - Preliminary Blood Blood Culture - Preliminary 07/08/17 11:10 Blood Culture - Final Blood 07/08/17 11:07 Blood Culture - Final Blood Assessment and Plan Assessment: Impression: #1 Non-ST segment elevation myocardial infarction with hypotension. The plan is to wean down and off the dopamine and use norepinephrine as to maintain O2 mean arterial pressure greater than 60. He #2 Acute exacerbation of chronic systolic congestive heart failure with estimated ejection fraction 30-35%. #3 History of coronary artery disease with previous stent placement. #4 Chronic atrial fibrillation anticoagulated with Eliquis. Status post permanent pacemaker implantation. #5 Acute on chronic renal failure #6 Diabetes mellitus. #7 Hypertension. #8 Carotid stenosis status post right carotid endarterectomy. #9 Remote history of chronic tobacco dependence. #10 Bacteremia secondary to Gram-positive cocci in clusters final ID pending. Plan: The patient was seen and evaluated by Dr. Neil. His chest x-ray and labs were reviewed. He has been initiated on vancomycin regarding the positive blood cultures. He is now a DO NOT RESUSCITATE/DO NOT INTUBATE CODE STATUS. We will continue to monitor him here closely in the intensive care unit. We'll make further recommendations based on his clinical status. I, the cosigning physician, have performed a history and physical examination on the patient. Lung sounds have crackles in the bilateral posterior bases.. Maintaining good O2 saturations in the 90s on 3L/min per nasal cannula. I have discussed the assessment and plan of care with my nurse practitioner, Kimberly Mills. I attest the above note as dictated by her.
--- NOTE | 2017-07-09 11:33 | P.PN ---
Subjective Progress Note Date: 07/09/17 Principal diagnosis: Patient is seen and examined today in follow up for Shock cardiogenic / septic , MIN, NSTEMI, CHF 86 year old male with PMHx of DM, CAD, HTN, CVA Patient presented due to generalized weakness and fatigue of new onset over the past 5 days and was worsening, he reported doing long hours of physical work in his back yard for the past few weeks. ALso reported postural dizziness. He was admitted for IVF hydration due to MIN from dehydration. patient continues to receive supportive care in the ICU, today levophed added for BP support, blood cultures came back positive for GPC await ID. patient feels tired, he is hard of hearing and refusing to put in his hearing aids, denies any chest pain, cough, abd pain. no other acute events overnight Objective - Vital Signs Vital signs: Vital Signs Temp 97.1 F L 07/09/17 08:00 Pulse 81 07/09/17 09:00 Resp 26 H 07/09/17 09:00 BP 93/56 07/09/17 09:00 Pulse Ox 95 07/09/17 09:00 Intake & Output 07/08/17 07/09/17 07/09/17 18:59 06:59 18:59 Intake Total 732.467 8960.763 225 Output Total 514 540 100 Balance 198.333 563.763 125 Weight 88.1 kg 88.3 kg Intake: IV 750 225 Dextrose 5% in Water 1, 300 225 000 ml @ 75 mls/hr IV . [id number] ONE with Sodium Bicarb (1 Meq/ml) 150 ml Rx#:[id number] Sodium Chloride 0.9% 1, 450 000 ml @ 75 mls/hr IV . [id number] [facility] Rx#:[id number] Intake, IV Titration 712.333 353.763 Amount Heparin Sodium,Porcine/ 137.333 278.763 D5w Pmx 25,000 unit In Dextrose/Water 1 500ml. bag @ 11.9 UNITS/KG/HR 19 .86 mls/hr IV .Q24H [facility] Rx#:[id number] Magnesium Sulfate-D5w Pmx 100 1 gm In Dextrose/Water 1 100ml.bag @ 25 mls/hr IVPB ONCE ONE Rx#: [id number] Sodium Chloride 0.9% 1, 475 75 000 ml @ 100 mls/hr IV . Q10H [facility] Rx#:[id number] Output: Urine 514 540 100 Other: Voiding Method Indwelling Catheter Indwelling Catheter Indwelling Catheter # Voids 1 - Exam Constitutional: mental status waxing and waning , responds to gentle verbal stimulation . Not in acute distress, pleasant, talks only short sentences ( this is at baseline per the ) Lungs: good breath sounds bilaterally with some fine inspiratory rales at lung bases more on the left compared to right side, no wheezes Cardiovascular: Regular rate and rhythm, no murmurs, no gallops, no rubs, no peripheral edema Gastrointestinal: Soft, no tenderness, mild upper abd distention, bowel sounds positive, no abdominal wall hernias Extremities: No digital cyanosis or ischemia, capillary refill immediate over bilateral toes and fingers, no calf muscle tenderness Psych: Alert, oriented to place, person rodrigez cath in place. - Labs CBC & Chem 7: 07/09/17 04:00 07/09/17 04:00 Labs: Abnormal Lab Results - Last 24 Hours (Table) 07/08/17 07/08/17 07/08/17 Range/Units 08:10 08:10 10:58 WBC 12.3 H (3.8-10.6) k/uL RBC 3.52 L (4.30-5.90) m/uL Hgb 11.3 L (13.0-17.5) gm/dL Hct 35.6 L (39.0-53.0) % MCV 101.3 H (80.0-100.0) fL MCHC (31.0-37.0) g/dL Plt Count 133 L (150-450) k/uL Neutrophils # 11.2 H (1.3-7.7) k/uL Lymphocytes # 0.3 L (1.0-4.8) k/uL APTT 30.4 H (22.0-30.0) sec Sodium (137-145) mmol/L Carbon Dioxide (22-30) mmol/L BUN (9-20) mg/dL Creatinine (0.66-1.25) mg/dL Glucose (74-99) mg/dL POC Glucose (mg/dL) 171 H (75-99) mg/dL Calcium (8.4-10.2) mg/dL Phosphorus (2.5-4.5) mg/dL Urine Blood (Negative) Ur Leukocyte Esterase (Negative) Ur Squamous Epith Cells (0-4) /hpf Urine Bacteria (None) /hpf Hyaline Casts (0-2) /lpf 07/08/17 07/08/17 07/08/17 Range/Units 11:10 16:30 17:15 WBC (3.8-10.6) k/uL RBC (4.30-5.90) m/uL Hgb (13.0-17.5) gm/dL Hct (39.0-53.0) % MCV (80.0-100.0) fL MCHC (31.0-37.0) g/dL Plt Count (150-450) k/uL Neutrophils # (1.3-7.7) k/uL Lymphocytes # (1.0-4.8) k/uL APTT 41.4 H (22.0-30.0) sec Sodium (137-145) mmol/L Carbon Dioxide (22-30) mmol/L BUN (9-20) mg/dL Creatinine (0.66-1.25) mg/dL Glucose (74-99) mg/dL POC Glucose (mg/dL) 177 H (75-99) mg/dL Calcium (8.4-10.2) mg/dL Phosphorus (2.5-4.5) mg/dL Urine Blood Small H (Negative) Ur Leukocyte Esterase Small H (Negative) Ur Squamous Epith Cells 6 H (0-4) /hpf Urine Bacteria Occasional H (None) /hpf Hyaline Casts 3 H (0-2) /lpf 07/08/17 07/08/17 07/09/17 Range/Units 20:12 22:30 04:00 WBC 16.9 H (3.8-10.6) k/uL RBC 3.52 L (4.30-5.90) m/uL Hgb 11.4 L (13.0-17.5) gm/dL Hct 37.1 L (39.0-53.0) % MCV 105.5 H (80.0-100.0) fL MCHC 30.8 L (31.0-37.0) g/dL Plt Count 147 L (150-450) k/uL Neutrophils # 15.4 H (1.3-7.7) k/uL Lymphocytes # 0.2 L (1.0-4.8) k/uL APTT 56.7 H (22.0-30.0) sec Sodium (137-145) mmol/L Carbon Dioxide (22-30) mmol/L BUN (9-20) mg/dL Creatinine (0.66-1.25) mg/dL Glucose (74-99) mg/dL POC Glucose (mg/dL) 250 H (75-99) mg/dL Calcium (8.4-10.2) mg/dL Phosphorus (2.5-4.5) mg/dL Urine Blood (Negative) Ur Leukocyte Esterase (Negative) Ur Squamous Epith Cells (0-4) /hpf Urine Bacteria (None) /hpf Hyaline Casts (0-2) /lpf 07/09/17 07/09/17 07/09/17 Range/Units 04:00 04:00 07:38 WBC (3.8-10.6) k/uL RBC (4.30-5.90) m/uL Hgb (13.0-17.5) gm/dL Hct (39.0-53.0) % MCV (80.0-100.0) fL MCHC (31.0-37.0) g/dL Plt Count (150-450) k/uL Neutrophils # (1.3-7.7) k/uL Lymphocytes # (1.0-4.8) k/uL APTT 78.7 H (22.0-30.0) sec Sodium 132 L (137-145) mmol/L Carbon Dioxide 11 L (22-30) mmol/L BUN 113 H* (9-20) mg/dL Creatinine 3.43 H (0.66-1.25) mg/dL Glucose 191 H (74-99) mg/dL POC Glucose (mg/dL) 240 H (75-99) mg/dL Calcium 8.0 L (8.4-10.2) mg/dL Phosphorus 5.3 H (2.5-4.5) mg/dL Urine Blood (Negative) Ur Leukocyte Esterase (Negative) Ur Squamous Epith Cells (0-4) /hpf Urine Bacteria (None) /hpf Hyaline Casts (0-2) /lpf Microbiology - Last 24 Hours (Table) 07/08/17 11:07 Blood Culture Gram Stain - Preliminary Blood Blood Culture - Preliminary 07/08/17 11:10 Blood Culture - Final Blood 07/08/17 11:07 Blood Culture - Final Blood Assessment and Plan Assessment: 86 year old male presented with generalized fatigue and postural dizziness. admitted for MIN due to dehydration. However yesterday , he was noted to have trending up troponins, cardiology was involved, this morning he is hypotensive and his troponin contined to trend up, His echo cardiogram suggested LVEF of around 30%, patient was oliguric, for which he will be transferred to the ICU for dopamin drip and close monitoring. Cardiology has no recommendations for immediate need of heart cath at this time. Today he seems to be non oliguric, but requiring IV pressors for cardiovascular support, blood cultures POsitive for GPC in clusters await final ID. started empirically on Vanco.continues to be afebrile with only one episode of subclinical fever with temp of 100.3 (>48 hours ago) no other episodes of fever. Plan: Neurologic Mental status waxing and waning most likely 2/2 acute toxic metabolic encephalopathy 2/2 uremia and underlying MRSA bactremia no focal neurologic deficits patient is very hard of hearing following commands, and answers questions appropriately continue with neuro checks per ICU protocol Cardiovascular Shock , cardiogenic vs septic acute exacerbation of systolic CHF with LVEF of 30%, and hypokinesis of inferolateral [place] now on 2 IV pressors with Levophed Dopamine to increase renal perfusion cardiology following NSTEMI , on heparin drip, ASA, statin hitory of CAD s/p stents BB, and imdur with hold parameters due to hypotension no immediate plans for left heart cath at this time per cardiology Paroxysmal Afib , currently rate controlled , on eliquis at home, s/p PPM Renal MIN non-oliguric now, 2/2 prerenal ATN from hypoperfusion 2/2 dehydration and hypotension due to possible cardiogenic shock nephrology following metabolic acidosis on bicarb to enhance renal function rodrigez cath for strict I/Os Metabolic Diabetes mellitus , blood sugar controlled , continue with insulin sliding scale metabolic acidosis on bicarb drip Infectious Sepsis 2/2 MRSA bactremia on vancomycin now Shock 2/2 cardiogenic vs septic or both components levophed IV pressor follow up blood cultures still pending , but urine reflected MRSA most likely 2/ 2 bactremia Hematology no bleeding tendency hemoglobin overall stable Leukocytosis 2/2 infectious process DVT prophylaxis , currently on heparin drip for NSTEMI Dermatologic no pressure ulcers no skin rashes GI swallow evaluation due to waxing and waning mental status no report of bloody bowel movement or any evidence of GI bleeding COde status , No code family to arrive today for further discussion regarding goal of therapy , Prognosis is guarded at this time due to multiorgan failure and advanced age. continue current management in the ICU
[2017-07-09 12:18] LABS: Glucose,Whole Blood 285 mg/dL (75-99)
[2017-07-09] MEDS: SODIUM CHLORIDE 0.9% 1,000 ML IV SCH (12:40)
[2017-07-09] MEDS: MORPHINE SULFATE 10 MG/ML SYRINGE IVP PRN ×3 (12:43→21:29)
[2017-07-09] MEDS ORDERED: INSULIN DETEMIR 100 UNIT/ML 10 ML VIAL SQ SCH (13:15)
--- NOTE | 2017-07-09 13:33 | PN ---
PROGRESS NOTE Avelino Giles is in the ICU. Mr. Giles was admitted with altered mentation. He has chronic atrial fib, previous LAD stenting and he also probably has some sepsis of unclear source growing gram-positive cocci in the blood. He is on a fairly high dose of dopamine of 10 mics. He is making marginal urine output. Denies a chest pain. EKG reveals no acute changes. He has an underlying pacemaker. He has ejection fraction that is reduced globally and a troponin that has gone up, but this could be related to hypoxia secondary to hypotension and other issues that occurred with sepsis. I am recommending that we will continue current supportive therapy, give him a small dose of Levophed, back off on the dopamine and continue his other medications. Blood pressure today is 96/60, pulse rate is about 80 and irregular, atrial fib, JVD 1 cm. No carotid bruit S1, S2 are normal. Short systolic murmur noted. Lungs reveal diminished air entry. Abdominal and lower extremity exam unchanged. Prognosis remains guarded. The patient does have a non-ST elevation NV of a type 2 related to hypoxia and hypotension. He is known to have underlying CAD. We will continue current medical therapy and switch him to reduced dose of dopamine and a small dose of Levophed and see how he does. MMODL / IJN: [id number] /
[2017-07-09] MEDS: DEXTROSE/WATER 1 500ML.BAG with DOPamine DRIP 800 MG IV SCH (15:32)
[2017-07-09 17:04] LABS: Glucose,Whole Blood 260 mg/dL (75-99)
--- NOTE | 2017-07-09 19:30 | PN ---
PROGRESS NOTE Patient is seen for followup for acute kidney injury. He is comfortable, awake. He is still in the ICU. Patient remains hypotensive. His dopamine was up to 10 mics and is now being switched over to Levophed. He has had good urine output at about 30-70 mL an hour. EXAMINATION: Blood pressure this morning was 90/63, heart rate about 78 per minute. Patient is afebrile. Examination of the heart S1, S2. Examination of the lungs decreased breath sounds at the bases. Abdomen is soft, nontender. Examination of the lower extremities shows no significant edema. LABS SHOW: Sodium 132, potassium 4.2, CO2 is 11, BUN 113, serum creatinine 3.43. ASSESSMENT: 1. Acute kidney injury secondary to hypotension hypoperfusion and urinary tract infection, currently nonoliguric acute tubular necrosis. No nephrotoxic agents on board. 2. Severe metabolic acidosis associated with renal failure and hypoperfusion. Lactic acid was not elevated. The patient is maintained on a bicarb drip, which I will increase for a few hours to 100 mL an hour and then decrease back to 75 mL an hour. He is also on oral sodium bicarb. However, his oral intake is poor and a swallowing eval is pending. 3. Methicillin-resistant Staphylococcus aureus urinary tract infection. 4. Mild hyperphosphatemia. 5. Hypotension secondary to sepsis. The cortisol level was not low. PLAN: Continue with IV fluids. Increase bicarb. Repeat chest x-ray in a.m. and if the patient is able to take oral medications and if he passes his swallowing eval, we can continue with oral sodium bicarb. MMODL / IJN: [id number] /
[2017-07-09] MEDS: AMITRIPTYLINE HCL 25 MG TAB PO SCH (20:35)
[2017-07-09 20:38] VITALS: TEMP 97.9
[2017-07-09 21:46] LABS: Glucose,Whole Blood 283 mg/dL (75-99)
[2017-07-09] MEDS ORDERED: ATROPINE OPHTH SOLN 1% 5ML BTL SUBLINGUAL PRN (23:12)
[2017-07-09] MEDS ORDERED: MORPHINE SULFATE 2 MG/ML SYRINGE IV PRN (23:12)
[2017-07-09] MEDS ORDERED: SCOPOLAMINE 1.5MG/72HR PATCH TRANSDERM PRN (23:12)
[2017-07-09] MEDS ORDERED: LORazepam 2 MG/ML INJ IV PRN (23:12)
[2017-07-09] MEDS ORDERED: MORPHINE SULFATE (100 MG/2 ML) 100 MG in SODIUM CHLORIDE 0.9% 100 ML IV SCH (23:15)
[2017-07-10 00:30] VITALS: PULSE 81; RESP 0
[2017-07-10 00:31] VITALS: BP 68/43
[2017-07-10] MEDS ORDERED: VANCOMYCIN 1,000 MG in SODIUM CHLORIDE 0.9% 250 ML IVPB ONE (06:00)
--- NOTE | 2017-07-10 07:34 | P.DS ---
Providers Date of admission: 07/06/17 22:52 Expected date of discharge: 07/10/17 (patient ) Attending physician: Nestor Blanco MD Consults: 07/06/17 22:53 Consult Physician Routine Consulting Provider: Fran Wolfe Consult Reason/Comments: Acute renal failure Do you want consulting provider notified?: Yes 07/07/17 09:41 Consult Physician Routine Consulting Provider: Melvin Espinoza Consult Reason/Comments: elevated trops, new lower chest and back pain Do you want consulting provider notified?: Yes 07/08/17 10:11 Consult Physician Routine Consulting Provider: Zoran Neil Consult Reason/Comments: critical care Do you want consulting provider notified?: Yes Primary care physician: Danial [facility] Course: 86 year old male presented with generalized fatigue and postural dizziness. admitted for MIN due to dehydration. However yesterday , he was noted to have trending up troponins, cardiology was involved, this morning he is hypotensive and his troponin contined to trend up, His echo cardiogram suggested LVEF of around 30%, patient was oliguric, for which he will be transferred to the ICU for dopamin drip and close monitoring. Cardiology has no recommendations for immediate need of heart cath at this time. Today he seems to be non oliguric, but requiring IV pressors for cardiovascular support, blood cultures Positive for MRSA. started on Vanco. continues to be afebrile with only one episode of subclinical fever with temp of 100.3 (>48 hours ago) no other episodes of fever. family meeting was held and patient was made comfort care, shortly after he was . Shock multifactorial , cardiogenic and septic sepsis 2/2 MRSA bactremia NSTEMI acute systolic CHF MIN Patient Condition at Discharge: Poor Plan - Discharge Summary New Discharge Prescriptions: No Action Atorvastatin [Lipitor] 20 mg PO DAILY Nitroglycerin Sl Tabs [Nitrostat] 0.4 mg SUBLINGUAL Q5M PRN PRN Reason: Pain Control HYDROcodone/APAP 7.5-325MG [[place] 7.5-325] 1 tab PO Q6HR PRN PRN Reason: Pain Control Apixaban [Eliquis] 2.5 mg PO BID Omeprazole [PriLOSEC] 20 mg PO AC-BID Amitriptyline HCl 25 mg PO HS Isosorbide Mononitrate ER [Imdur] 30 mg PO DAILY amLODIPine BESYLATE [Norvasc] 10 mg PO DAILY Allopurinol [Zyloprim] 100 mg PO DAILY #30 tab Metoprolol Tartrate [Lopressor] 25 mg PO TID Ferrous Sulfate [Feosol] 325 mg PO DAILY sitaGLIPtin PHOSPHATE [Januvia] 100 mg PO DAILY Enalapril Maleate [Vasotec] 10 mg PO DAILY Discharge Medication List Amitriptyline HCl 25 mg PO HS 03/16/15 [History] Apixaban [Eliquis] 2.5 mg PO BID 03/16/15 [History] Atorvastatin [Lipitor] 20 mg PO DAILY 03/16/15 [History] HYDROcodone/APAP 7.5-325MG [[place] 7.5-325] 1 tab PO Q6HR PRN 03/16/15 [History] Isosorbide Mononitrate ER [Imdur] 30 mg PO DAILY 03/16/15 [History] Nitroglycerin Sl Tabs [Nitrostat] 0.4 mg SUBLINGUAL Q5M PRN 03/16/15 [History] Omeprazole [PriLOSEC] 20 mg PO AC-BID 03/16/15 [History] amLODIPine BESYLATE [Norvasc] 10 mg PO DAILY 03/16/15 [History] Allopurinol [Zyloprim] 100 mg PO DAILY #30 tab 03/23/15 [Rx] Ferrous Sulfate [Feosol] 325 mg PO DAILY 09/10/16 [History] Metoprolol Tartrate [Lopressor] 25 mg PO TID 09/10/16 [History] sitaGLIPtin PHOSPHATE [Januvia] 100 mg PO DAILY 07/06/17 [History] Enalapril Maleate [Vasotec] 10 mg PO DAILY 07/07/17 [History] Follow up Appointment(s)/Referral(s): Danial Gamino MD [Primary Care Provider] - 1-2 days [facility] Visiting Nurse, [NON-STAFF] - Discharge Disposition: - Preliminary Cause of Preliminary Cause of : shock secondary to sepsis and cardiogenic, NSTEMI, Acute systolic CHF, MIN
[2017-07-10] MEDS ORDERED: PANTOPRAZOLE 40 MG/10 ML VIAL IVP SCH (09:00)
== END 2017-07-10 02:00 | disposition expired | DRG 871 ==
LOC: EC 21:06 → 5MS5E 22:52 → 6ICU 07-08 10:50
PROVIDERS: ADMIT Family Medicine; ATTEND Family Medicine
DX: A41.02 Sepsis due to Methicillin resistant Staphylococcus aureus (principal); I21.4 Non-ST elevation (NSTEMI) myocardial infarction; N17.0 Acute kidney failure with tubular necrosis; I50.23 Acute on chronic systolic (congestive) heart failure; R57.0 Cardiogenic shock; E11.22 Type 2 diabetes mellitus with diabetic chronic kidney disease; R65.21 Severe sepsis with septic shock; E87.2 Acidosis; I49.5 Sick sinus syndrome; E86.0 Dehydration; I48.0 Paroxysmal atrial fibrillation; E87.1 Hypo-osmolality and hyponatremia; I13.0 Hypertensive heart and chronic kidney disease with heart failure and stage 1 through stage 4 chronic kidney disease, or unspecified chronic kidney disease; J98.11 Atelectasis; N39.0 Urinary tract infection, site not specified; E11.65 Type 2 diabetes mellitus with hyperglycemia; E78.5 Hyperlipidemia, unspecified; E83.39 Other disorders of phosphorus metabolism; E83.42 Hypomagnesemia; H91.90 Unspecified hearing loss, unspecified ear; I25.10 Atherosclerotic heart disease of native coronary artery without angina pectoris; I48.2 Chronic atrial fibrillation; M10.9 Gout, unspecified; N18.9 Chronic kidney disease, unspecified; R09.02 Hypoxemia; Z79.01 Long term (current) use of anticoagulants; Z79.899 Other long term (current) drug therapy; Z82.49 Family history of ischemic heart disease and other diseases of the circulatory system; Z86.73 Personal history of transient ischemic attack (TIA), and cerebral infarction without residual deficits; Z87.891 Personal history of nicotine dependence; Z95.0 Presence of cardiac pacemaker; Z95.5 Presence of coronary angioplasty implant and graft; Z96.653 Presence of artificial knee joint, bilateral; Z79.84 Long term (current) use of oral hypoglycemic drugs
CPT/HCPCS: 36415; 71010; 74176; 76770; 80048; 80053; 81001; 82533; 82550; 82553; 83605; 83735; 83880; 84100; 84484; 85025; 85610; 85730; 87040; 87077; 87086; 87186; 93005; 93306; 99285